=== PATIENT | female | born 1955 | race Caucasian/White ===

== ENCOUNTER → 2018-12-25 | Outpatient (CLI) | payer SELFPAY ==
[2018-12-25 13:43] LABS: BASOPHILS ABSOLUTE AUTO 0.06 K/mm3 (0.00-0.23); BASOPHILS PERCENT AUTO 1 % (0-2); EOSINOPHILS ABSOLUTE AUTO 1.21 K/mm3 (0.00-0.68); EOSINOPHILS PERCENT AUTO 17 % (0-6); Hematocrit 38.9 % (33.0-51.0); Hemoglobin 13.2 g/dL (11.5-16.0); IMMATURE GRAN ABSOLUTE AUTO 0.01 K/mm3 (0.00-0.10); IMMATURE GRAN PERCENT AUTO 0 % (0-1); LYMPHOCYTES ABSOLUTE AUTO 1.55 K/mm3 (0.84-5.20); LYMPHOCYTES PERCENT AUTO 22 % (21-46); MONOCYTES PERCENT AUTO 6 % (4-13); Mean Corpuscular HGB 29.7 pg (26.0-34.0); Mean Corpuscular HGB Conc 33.9 g/dL (31.5-36.5); Mean Corpuscular Volume 88 fL (80-100); Mean Platelet Volume 10.6 fL (9.1-12.4); NEUTROPHILS ABSOLUTE AUTO 3.75 K/mm3 (1.96-9.15); NEUTROPHILS PERCENT AUTO 54 % (41-73); Platelet Count 244 K/mm3 (150-400); RDW Coefficient Variation 13.6 % (11.7-14.2); RDW Standard Deviation 43.7 fL (35.1-46.3); Red Blood Cell Count 4.44 M/mm3 (3.80-5.20); White Blood Cell Count 6.98 K/mm3 (4.00-11.30)
[2018-12-25 14:01] LABS: Alanine Aminotransfer (ALT/SGP 22 U/L (12-78); Albumin, Blood 4.3 g/dL (3.4-5.0); Albumin/Globulin Ratio 1.1 (0.8-1.8); Alk Phos 64 U/L (40-126); Anion Gap 11 mmol/L (6-16); Aspartate Aminotrans (AST/SGOT 22 U/L (12-37); Bilirubin, Total 0.6 mg/dL (0.1-1.0); Blood Urea Nitrogen 13 mg/dL (8-24); Bun/Creatinine Ratio 17.1 (12.0-20.0); CO2, Blood 25 mmol/L (21-32); Chloride, Blood 103 mmol/L (98-108); Creatinine, Blood 0.76 mg/dL (0.40-1.00); Globulin, Blood 3.8 g/dL (2.2-4.0); Glomerular Filtration Rate >60 (60-); Glucose, Blood 102 mg/dL (70-99); Potassium, Blood 3.9 mmol/L (3.5-5.5); Sodium, Blood 139 mmol/L (136-145); Thyroid Stimulating Hormone 3.458 uIU/mL (0.360-4.800); Total Protein, Blood 8.1 g/dL (6.4-8.2)
[2018-12-25 14:02] LABS: Troponin I <0.017 ng/mL (0.000-0.040)
== END | disposition home or self-care (01) ==
LOC: LAB EV 13:38 → LAB SHORT 13:38
PROVIDERS: Physician Assistant Surgical
DX: R06.00 Dyspnea, unspecified (principal); R53.83 Other fatigue
CPT/HCPCS: 80053; 84443; 84484; 85025; 85379

== ENCOUNTER 2019-08-31 20:42 | Emergency (ER) | payer SELFPAY ==
[~2019-08-31] VITALS: Ht 172.7 cm; Wt 113.4 kg
[2019-08-31] MEDS ORDERED: Roxicodone5 MG PO (23:00)
== END 2019-08-31 23:55 | disposition home or self-care (01) ==
LOC: ER 20:42
DX: S52.531A Colles' fracture of right radius, initial encounter for closed fracture (principal); W01.10XA Fall on same level from slipping, tripping and stumbling with subsequent striking against unspecified object, initial encounter
CPT/HCPCS: 25605; 73090; 76000; 96374-59; 99283-25; A9270; J2270; J2704; J7030

== ENCOUNTER 2019-09-08 14:09 | Day surgery (SDC) | payer MEDICARE ==
[~2019-09-08 14:09] MED LIST: Roxicodone5 MG PO
--- NOTE | 2019-09-08 14:52 | NUR ---
Ambulatory in Day Surgery History, Chart, Medications and Allergies reviewed before start of procedure.Lungs clear T/O to Auscultation. Patient confirms NPO status and agrees with scheduled surgery.
--- NOTE | 2019-09-08 18:43 | NUR ---
Patient up to Ambulate WITH STANDBY ASSIST TO XFER TO Discharge instructions reviewed with patient. Patient verbalizes understanding. Copy given to patient to take home. Patient States Post-Procedure ride home has been arranged. Discharged via wheelchair to private car for ride home.
== END 2019-09-08 23:15 | disposition home or self-care (01) ==
LOC: ORD 14:09 → ORSCMMR 14:09 → ORD 23:15
PROVIDERS: Orthopaedic Surgery
PROC: 0PSH04Z Reposition Right Radius with Internal Fixation Device, Open Approach (ICD-10-PCS; principal; 2019-09-08 11:15)
DX: S52.571A Other intraarticular fracture of lower end of right radius, initial encounter for closed fracture (principal); E03.9 Hypothyroidism, unspecified; J45.909 Unspecified asthma, uncomplicated; Z79.899 Other long term (current) drug therapy; E66.01 Morbid (severe) obesity due to excess calories; Z68.38 Body mass index [BMI] 38.0-38.9, adult
CPT/HCPCS: C1713; J0360; J0690; J1100; J2250; J2405; J2704; J3010; J7120

== ENCOUNTER → 2019-12-22 | Outpatient (CLI) | payer OTHER ==
[2019-12-22 13:46] LABS: BASOPHILS ABSOLUTE AUTO 0.08 K/mm3 (0.00-0.23); BASOPHILS PERCENT AUTO 1 % (0-2); EOSINOPHILS ABSOLUTE AUTO 1.12 K/mm3 (0.00-0.68); EOSINOPHILS PERCENT AUTO 13 % (0-6); Hematocrit 40.3 % (33.0-51.0); Hemoglobin 13.7 g/dL (11.5-16.0); IMMATURE GRAN ABSOLUTE AUTO 0.01 K/mm3 (0.00-0.10); IMMATURE GRAN PERCENT AUTO 0 % (0-1); LYMPHOCYTES ABSOLUTE AUTO 2.12 K/mm3 (0.84-5.20); LYMPHOCYTES PERCENT AUTO 25 % (21-46); MONOCYTES ABSOLUTE AUTO 0.63 K/mm3 (0.16-1.47); MONOCYTES PERCENT AUTO 8 % (4-13); Mean Corpuscular HGB 29.3 pg (26.0-34.0); Mean Corpuscular Volume 86 fL (80-100); Mean Platelet Volume 10.9 fL (9.1-12.4); NEUTROPHILS ABSOLUTE AUTO 4.49 K/mm3 (1.96-9.15); NEUTROPHILS PERCENT AUTO 53 % (41-73); Platelet Count 195 K/mm3 (150-400); RDW Coefficient Variation 14.6 % (11.7-14.2); RDW Standard Deviation 46.2 fL (35.1-46.3); Red Blood Cell Count 4.68 M/mm3 (3.80-5.20); White Blood Cell Count 8.45 K/mm3 (4.00-11.30)
[2019-12-22 13:56] LABS: Alanine Aminotransfer (ALT/SGP 26 U/L (12-78); Albumin, Blood 3.7 g/dL (3.4-5.0); Albumin/Globulin Ratio 0.9 (0.8-1.8); Alk Phos 70 U/L (40-126); Anion Gap 14 mmol/L (6-16); Aspartate Aminotrans (AST/SGOT 24 U/L (12-37); Bilirubin, Total 0.4 mg/dL (0.1-1.0); Blood Urea Nitrogen 19 mg/dL (8-24); Bun/Creatinine Ratio 22.6 (12.0-20.0); CO2, Blood 23 mmol/L (21-32); Calcium, Blood 8.6 mg/dL (8.5-10.1); Chloride, Blood 105 mmol/L (98-108); Creatinine, Blood 0.84 mg/dL (0.40-1.00); Globulin, Blood 3.9 g/dL (2.2-4.0); Glomerular Filtration Rate >60 (60-); Glucose, Blood 103 mg/dL (70-99); Sodium, Blood 142 mmol/L (136-145); Total Protein, Blood 7.6 g/dL (6.4-8.2)
== END | disposition home or self-care (01) ==
LOC: LAB EV 13:41 → LAB SHORT 13:41
PROVIDERS: Physician Assistant
DX: R07.9 Chest pain, unspecified (principal)
CPT/HCPCS: 80053; 85025; 85379

== ENCOUNTER 2020-05-21 11:47 | Day surgery (SDC) | payer OTHER ==
[~2020-05-21] VITALS: Ht 174 cm; Wt 115.2 kg
[~2020-05-21 11:47] MED LIST changes: +FLUT1DIS5 INH; +LEVSOD25 PO; +PROAIR DIGIHAL90 MCG INH; +[UNRECOGNIZED DRUG - OTHER]
--- NOTE | 2020-05-21 12:47 | NUR ---
History, Chart, Medications and Allergies reviewed before start of procedure.Patient confirms NPO status and agrees with scheduled surgery. Patient states colon prep results clear.Lungs clear T/O to Auscultation.
--- NOTE | 2020-05-21 13:31 | NUR ---
05/21/20 1331 MARQUISE BRADSHAW History, Chart, Medications and Allergies reviewed before start of procedure. O2 VIA N/C INTACT THROUGHOUT SEDATION/PROCEDURE. 3-LEAD EKG REVIEWED WITH PHYSICIAN PRIOR TO START OF PROCEDURE. MONITOR INTACT WITH CONTINUOUS PULSE OXIMETRY AND INTERMITTENT BP. PATIENT DETERMINED TO BE ASA APPROPRIATE FOR PROPOFOL SEDATION PRIOR TO START OF PROCEDURE BY DR. POTTER.
--- NOTE | 2020-05-21 15:46 | NUR ---
DISCHARGE SUMMARY PT A&OX4, VSS, AURELIO PO, LEFT UNIT VIA WC WITH DC PACKET, TO GO HOME WITH FARM FIELD MANAGER SISTER KEN. DC INSTRUCTIONS PROVIDED. PT REP UNDERSTANDING THOSE INSTRUCTIONS INCLUDING OK TO RESUME REG ACTIVITY TOMORROW, EXTRA H20 TODAY, NO DRIVING/MACHINERY TODAY, DR OFFICE WILL CALL WITH FU INFORMATION. IV DC'D. Discharge instructions reviewed with patient. Patient verbalizes understanding. Copy given to patient to take home. Discharged via wheelchair to private car for ride home.
== END 2020-05-21 22:54 | disposition home or self-care (01) ==
LOC: ORSCMMR 11:47 → ORD 13:15 → ORSCMMR 13:15
PROVIDERS: Internal Medicine Gastroenterology
PROC: 0D5L8ZZ Destruction of Transverse Colon, Via Natural or Artificial Opening Endoscopic (ICD-10-PCS; principal; 2020-05-21 13:15)
PROC: 0D5M8ZZ Destruction of Descending Colon, Via Natural or Artificial Opening Endoscopic (ICD-10-PCS; principal; 2020-05-21 13:15)
PROC: 0DBH8ZX Excision of Cecum, Via Natural or Artificial Opening Endoscopic, Diagnostic (ICD-10-PCS; principal; 2020-05-21 13:15)
PROC: 0DJ08ZZ Inspection of Upper Intestinal Tract, Via Natural or Artificial Opening Endoscopic (ICD-10-PCS; principal; 2020-05-21 13:15)
PROC: 0D5N8ZZ Destruction of Sigmoid Colon, Via Natural or Artificial Opening Endoscopic (ICD-10-PCS; principal; 2020-05-21 13:15)
PROC: 0D5P8ZZ Destruction of Rectum, Via Natural or Artificial Opening Endoscopic (ICD-10-PCS; principal; 2020-05-21 13:15)
DX: R19.5 Other fecal abnormalities (principal); D12.3 Benign neoplasm of transverse colon; D12.4 Benign neoplasm of descending colon; K63.5 Polyp of colon; K62.1 Rectal polyp; K57.30 Diverticulosis of large intestine without perforation or abscess without bleeding; Q27.33 Arteriovenous malformation of digestive system vessel; K64.8 Other hemorrhoids; E03.9 Hypothyroidism, unspecified; J45.909 Unspecified asthma, uncomplicated; Z87.891 Personal history of nicotine dependence; E66.01 Morbid (severe) obesity due to excess calories; Z68.39 Body mass index [BMI] 39.0-39.9, adult; Z79.899 Other long term (current) drug therapy
CPT/HCPCS: 88305; J2704; J7120

== ENCOUNTER 2020-12-15 15:29 | Inpatient (IN) | payer OTHER, MEDICARE ==
[~2020-12-15] VITALS: Ht 172.7 cm; Wt 112.3 kg
[2020-12-15 16:26] LABS: BASOPHILS ABSOLUTE AUTO 0.03 K/mm3 (0.00-0.23); BASOPHILS PERCENT AUTO 0 % (0-2); EOSINOPHILS ABSOLUTE AUTO 0.33 K/mm3 (0.00-0.68); EOSINOPHILS PERCENT AUTO 4 % (0-6); Hematocrit 37.6 % (33.0-51.0); Hemoglobin 12.7 g/dL (11.5-16.0); IMMATURE GRAN ABSOLUTE AUTO 0.07 K/mm3 (0.00-0.10); IMMATURE GRAN PERCENT AUTO 1 % (0-1); LYMPHOCYTES ABSOLUTE AUTO 1.14 K/mm3 (0.84-5.20); LYMPHOCYTES PERCENT AUTO 15 % (21-46); MONOCYTES ABSOLUTE AUTO 0.56 K/mm3 (0.16-1.47); MONOCYTES PERCENT AUTO 7 % (4-13); Mean Corpuscular HGB 28.6 pg (26.0-34.0); Mean Corpuscular HGB Conc 33.8 g/dL (31.5-36.5); Mean Corpuscular Volume 85 fL (80-100); Mean Platelet Volume 9.5 fL (9.1-12.4); NEUTROPHILS PERCENT AUTO 73 % (41-73); Platelet Count 364 K/mm3 (150-400); RDW Standard Deviation 43.2 fL (35.1-46.3); Red Blood Cell Count 4.44 M/mm3 (3.80-5.20); White Blood Cell Count 7.73 K/mm3 (4.00-11.30)
[2020-12-15 17:07] LABS: Alanine Aminotransfer (ALT/SGP 44 U/L (12-78); Albumin, Blood 2.5 g/dL (3.4-5.0); Albumin/Globulin Ratio 0.5 (0.8-1.8); Alk Phos 112 U/L (50-136); Anion Gap 6 mmol/L (6-16); Aspartate Aminotrans (AST/SGOT 55 U/L (12-37); Bilirubin, Total 0.7 mg/dL (0.1-1.0); Blood Urea Nitrogen 8 mg/dL (8-24); Bun/Creatinine Ratio 14.1 (12.0-20.0); CO2, Blood 31 mmol/L (21-32); Calcium, Blood 9.1 mg/dL (8.5-10.1); Chloride, Blood 97 mmol/L (98-108); Creatinine, Blood 0.57 mg/dL (0.40-1.00); Globulin, Blood 5.4 g/dL (2.2-4.0); Glomerular Filtration Rate >60 (60-); Glucose, Blood 105 mg/dL (70-99); Potassium, Blood 2.9 mmol/L (3.5-5.5); Sodium, Blood 134 mmol/L (136-145); Total Protein, Blood 7.9 g/dL (6.4-8.2); Troponin I <0.015 ng/mL (0.000-0.040)
[2020-12-15 17:20] LABS: Source, Urine Clean Catch
[2020-12-15 17:24] LABS: Appearance, Urine Clear (Clear); Bilirubin, Urine Neg (Neg); Blood, Urine 2+ (Neg); Color, Urine Yellow (P-Yellow); Glucose Qualitative, Urine Neg (Neg); Ketones, Urine Neg (Neg); Leukocyte Esterase, Urine Neg (Neg); Nitrite, Urine Neg (Neg); Protein, Urine Neg (Neg); Specific Gravity, Urine 1.015 (1.003-1.022); Urobilinogen, Urine NORM (Normal)
[2020-12-15 17:42] LABS: Bacteria Few /hpf; Squamous Epithelial Cells Few /hpf (Few)
[2020-12-15 18:14] LABS: PCO2 Arterial 36.4 mmHg (35-45); PO2 Arterial 106 mmHg (80-100); pH Blood Arterial 7.53 (7.35-7.45)
--- NOTE | 2020-12-15 22:30 | NUR ---
PT ARRIVES ER ADMIT. PT IS A&O, CALM & COOPERATIVE. ABLE TO GIVE A FULL HEALTH Hx. STS SHE TESTED +COVID ON 12/02 & HAS BEEN @ HOME RESTING. SHE HAS HAD INC DIFFICULTY W/ SOB, STS SHE IS NOW UNABLE TO WALK FROM HER BEDROOM TO RESTROOM & HAS BEEN USING A TRASHCAN IN HER ROOM A TOILET. TODAY HER SOB WORSENED & HER HOME BIOX READ 70%, PROMPTING HER TO CALL EMS. UPON ARRIVAL TO ED SHE WAS PLACED ON BiPAP AFTER NON-REBREATHER @15L WAS UNSUCCESSFUL IN BRINGING HER SATS UP FROM THE 80s. 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
--- NOTE | 2020-12-15 23:24 | NUR ---
UPDATE: RT @ BEDSIDE TO CHANGE PT FROM BiPAP TO AIRVO. PT TOLERATING WELL W/ SATS MAINTAINING >95%. PT ABLE TO SPEAK IN FULL SENTENCES W/ VERY LITTLE DYSPNEA. AIRVO @ 40L & 45%. PT CONTINUES TO BE CALM, COOPERATIVE & IN GOOD SPIRITS.
--- NOTE | 2020-12-16 01:17 | NUR ---
UPDATE: RT @ BEDSIDE. PT CHANGED FROM AIRVO TO NC @ 3L/min. SATS >94%, EVEN WHILE PT IS SLEEPING. VS STABLE. WILL CONTINUE TO MONITOR & REPORT APPROPRIATE.
[2020-12-16 03:52] LABS: BASOPHILS ABSOLUTE AUTO 0.01 K/mm3 (0.00-0.23); BASOPHILS PERCENT AUTO 0 % (0-2); EOSINOPHILS ABSOLUTE AUTO 0.01 K/mm3 (0.00-0.68); EOSINOPHILS PERCENT AUTO 0 % (0-6); Hematocrit 33.7 % (33.0-51.0); Hemoglobin 11.3 g/dL (11.5-16.0); IMMATURE GRAN ABSOLUTE AUTO 0.05 K/mm3 (0.00-0.10); IMMATURE GRAN PERCENT AUTO 1 % (0-1); LYMPHOCYTES ABSOLUTE AUTO 0.73 K/mm3 (0.84-5.20); LYMPHOCYTES PERCENT AUTO 10 % (21-46); MONOCYTES ABSOLUTE AUTO 0.22 K/mm3 (0.16-1.47); MONOCYTES PERCENT AUTO 3 % (4-13); Mean Corpuscular HGB 28.6 pg (26.0-34.0); Mean Corpuscular HGB Conc 33.5 g/dL (31.5-36.5); Mean Corpuscular Volume 85 fL (80-100); Mean Platelet Volume 9.6 fL (9.1-12.4); NEUTROPHILS ABSOLUTE AUTO 6.58 K/mm3 (1.96-9.15); NEUTROPHILS PERCENT AUTO 87 % (41-73); Platelet Count 331 K/mm3 (150-400); RDW Coefficient Variation 14.3 % (11.7-14.2); RDW Standard Deviation 44.2 fL (35.1-46.3); Red Blood Cell Count 3.95 M/mm3 (3.80-5.20)
[2020-12-16 04:07] LABS: Anion Gap 5 mmol/L (6-16); Blood Urea Nitrogen 10 mg/dL (8-24); Bun/Creatinine Ratio 18.7 (12.0-20.0); CO2, Blood 28 mmol/L (21-32); Calcium, Blood 8.3 mg/dL (8.5-10.1); Chloride, Blood 105 mmol/L (98-108); Creatinine, Blood 0.54 mg/dL (0.40-1.00); Glomerular Filtration Rate >60 (60-); Glucose, Blood 160 mg/dL (70-99); Potassium, Blood 4.7 mmol/L (3.5-5.5); Sodium, Blood 138 mmol/L (136-145)
--- NOTE | 2020-12-16 05:06 | NUR ---
UPDATE: PT STAND & PIVOT TRANSFER TO BS. TRANSFERRED WELL INITIALLY, HOWEVER AFTER SITTING ON THE BSC FOR A FEW MINS, PT BECAME DYSPNEIC & INCREASILY ANXIOUS. SATS DEC FROM 93% TO MID 70s. PT HAD DIFFICULTY TAKING IN SLOW BREATHS IN THROUGH THE NOSE & OUT THE MOUTH D/T ANXIETY. PT MEDICATED W/ PRN ATIVAN. RT CALLED & PT PLACED BACK ON AIRVO @ 40l, 40%FiO2. AFTER APPROX 10min, PT WAS ABLE TO REST, APPEARING MUCH MORE COMFORTABLE. SATS NOW >94%. CURTAINS LEFT OPEN & CALL LIGHT W/IN REACH.
--- NOTE | 2020-12-16 05:53 | NUR ---
SHIFT SUMMARY: PT SLEPT WELL FOR MOST OF THE NIGHT, AWAKING ONLY FOR MED PASS & TO USE BSC. PT WAS ON 3L/min NC FOR MOST OF THE NIGHT W/ O2 NEEDS INCREASING AFTER TRASNFERRING FROM BED TO BSC. SEE PREVIOUS NOTATION. PT HAS BEEN OTHERWISE STABLE. PT ENCOURAGED TO PRONE, HOWEVER PT STS SHE IS TOO ANXIOUS RIGHT NOW BUT SHE DOES WANT TO ATTEMPT TO PRONE IN THE AM. PLAN FOR POSSIBLE STATUS CHANGE TODAY IF PT REMAINS STABLE ON NC.
--- NOTE | 2020-12-16 07:35 | NUR ---
BEGINNING OF SHIFT Assumed care of pt at 0700. Bedside report received from Kisha QIU. Pt A&O x 4. Answers questions. Follows commands. Verbalizes needs. Pleasant and cooperative with care. SpO2 90% or greater with AirVO 40 LPM and 50% FiO2. Lungs diminished t/o. Pt has productive loose, moist cough with a small amount of thick white/clear sputum. SR per monitor. BP stable. Pt repositions independently in bed. Bed in lowest position. Call light in reach. Pt denies need at this time.
--- NOTE | 2020-12-16 08:09 | NUR ---
Dr Velasco in to see patient. Provider states pt may be PCU status. States to stop IV fluids. Inquired if provider would like CT PE study as this was cancelled yesterday due to pt not being able to lay flat. Provider states no, and to continue treating pt with xarelto.
--- NOTE | 2020-12-16 09:00 | NUR ---
Discussed code status with pt, she reinforces that she does not want intubation. States her father was on a ventilator and was not able to be weaned off and she and her sister discussed that she does not want mechanical ventilation. Pt also discusses that she would like her sister and/or daughter to be her decision maker. She details that her struggles with advanced decision making, "he was on life support for a month" and "he hasn't been the same since. He doesn't think right. He doesn't realize he has a few things missing, like empathy". She states she would not want him to be faced with making her health-care decisions.
--- NOTE | 2020-12-16 10:15 | NUR ---
Spoke with Bedside RN Marcia and discussed case. Pt is requiring significant oxygen support and is requesting to complete an advanced directive. Pt is wanting to appoint her sister as MPOA and not her spouse. Pt is resting in bed upon arrival and is A&O. Engaged in therapeutic discussion regarding advanced directive and code status. Pt confirms willingness to complete an advanced directive. Educated on life sustaining measures and each section to be completed. Assisted Pt with completing AD per her request. Pt places her initials next to her wishes. Discussed code status and educated on life sustaining measures including risk factors and implications. Communication from this RN is difficult due to wearing N99. Unsure if Pt is able to clearly hear education provided. Pt does confirm her wishes are to remain DNI. During visit this RN assisted Pt to BSC and back per her request. Pt desaturates to low to mid 70's while on BSC. Pt takes several minutes to recover before transfering back to bed. Spoke with Employment Law Specialist Joyce and discussed case. Joyce will notarize Pt's AD. Palliative Care will remain available.
--- NOTE | 2020-12-16 10:33 | NUR ---
CHANGE TO ICU STATUS Lasix given per orders from Dr Velasco. Pt tolerated commode use very poorly. First time up to commode, pt required FiO2 titrated from 50% to 65% and took about 7 minutes to recover. On second commode use, pt required FiO2 titrated from 65% to 90% and took about 5 minutes to recover. Jones catheter discussed with pt. Pt agreeable to this. Temp jones inserted. Updated Dr Velasco. Requested change to ICU status due to increasing FiO2 requirements and poor activity tolerance. New orders received.
[2020-12-16 10:54] LABS: Source, Urine Catheter
--- NOTE | 2020-12-16 11:05 | NUR ---
Per Laurie QIU, pt wants DNR/DNI. Call placed to Dr Velasco to receive new order. New order given. POLST filled out, provider states he will come by to sign it.
[2020-12-16 11:13] LABS: Appearance, Urine Clear (Clear); Bilirubin, Urine Neg (Neg); Blood, Urine 1+ (Neg); Color, Urine Yellow (P-Yellow); Glucose Qualitative, Urine Neg (Neg); Ketones, Urine Neg (Neg); Leukocyte Esterase, Urine Neg (Neg); Nitrite, Urine Neg (Neg); Protein, Urine Neg (Neg); Specific Gravity, Urine 1.005 (1.003-1.022); Urobilinogen, Urine NORM (Normal)
[2020-12-16 12:00] LABS: Bacteria Rare /hpf; Mucus Light (0-Heavy); Squamous Epithelial Cells Rare /hpf (Few)
--- NOTE | 2020-12-16 17:19 | NUR ---
SUMMARY At this time, pt remains A&O x 4. Answers questions. Follows commands. Verbalizes needs. Pleasant and cooperative with care. Pt does not tolerate out of bed activity well due to dyspnea and hypoxia with exertion. Pt is steady on feet and receptive to verbal cues with mobilizing. Saxena catheter placed, draining clear yellow urine. Pt had BM today, large and soft. Pt states this is the first time she has had a bowel movement in two weeks. Pt's lungs are dim t/o with intermittent fine crackles to bases. Currently on AIRVO with 55 LPM flow and 45% FiO2. SpO2 90% or greater. Bed in lowest position. Call light in reach. Pt denies need at this time.
--- NOTE | 2020-12-16 18:21 | NUR ---
Spiritual care note: KENRICK was tearful as she told me about her marriage and struggles. She appeared releived to be able to talk to someone. She responded well to spiritual outreach counselor and prayer. Advanced Directive notarized. POLST completed and signed by physician. Copies made of documents and several given to pt. I hand-carried AD and POLST to medical records. She does not want her involved in any medical decisions on her behalf. She has designated her sister and dtr as MPOA. I will remain available.
--- NOTE | 2020-12-16 20:00 | NUR ---
LATE ENTRY: ASSUMED CARE OF PT AT 1915. REPORT RECEIVED AT BEDSIDE. PT PRESENTS ON AIRVO WITH 55 L/M FIO2 47 PERCENT. PT MAINTAINS 90-93 PERCENT SATURATIONS. PT ALERT AND ORIENTED. PLEASANT AND COOPERATIVE WITH CARE AND ASSESSMENT. DISCUSSED PLAN TO PRONE THIS NIGHT. PT VERBALIZES UNDERSTANDING. WILL REVIEW CHART AND PLAN OF CARE FOR THIS PT.
--- NOTE | 2020-12-17 | NUR ---
PT TOLERATES PRONE POSITION TO THE RIGHT FOR APPROX 3 HOURS. HAD NEED TO INCREASED FIO2 TO 55 PERCENT WITH THE EXERTION DURING TURN. WILL TITRATE IF ABLE. PT BACK TO SUPINE. OXYGEN SATURATATIONS REMAIN > 90 PERCENT.
--- NOTE | 2020-12-17 06:30 | NUR ---
PT HAS PRONE HERSELF BACK TO LEFT SIDE ON HER OWN. HAS BEEN ABLE TO REST. FIO2 HAS BEEN DECREASED BACK TO 45 PERCENT WITH 55 L/M FLOW. DOES HAVE EXERTIONAL DYSPNEA. WILL CONTINUE TO MONITOR PT, AND WILL REPORT OFF TO ONCOMING RN.
[2020-12-17 08:53] LABS: Anion Gap 6 mmol/L (6-16); Blood Urea Nitrogen 15 mg/dL (8-24); Bun/Creatinine Ratio 22.7 (12.0-20.0); CO2, Blood 29 mmol/L (21-32); Calcium, Blood 8.5 mg/dL (8.5-10.1); Chloride, Blood 105 mmol/L (98-108); Creatinine, Blood 0.66 mg/dL (0.40-1.00); Glomerular Filtration Rate >60 (60-); Glucose, Blood 104 mg/dL (70-99); Potassium, Blood 3.6 mmol/L (3.5-5.5); Sodium, Blood 140 mmol/L (136-145)
--- NOTE | 2020-12-17 09:26 | NUR ---
Assumed care of pt at 0700. Bedside report received from Baljit QIU. Pt A&O x 4. Answers questions. Follows commands. Verbalizes needs. Pleasant and cooperative with care. Lungs dim t/o. Pt has loose, moist, productive cough with small amounts of clear/white sputum. IS and flutter valve at bedside. SpO2 90% or greater with 55 LPM and 45% FiO2. Pt assisted to reposition in bed and cords and lines managed as they were tangled from previous proning. During repositioning, SpO2 dropped to low 80s. After 5 minutes of inactivity, SpO2 had not recovered, therefore FiO2 increased to 55%. This allowed patient to recover promptly. Dr Velasco in to see patient this AM. Provider states to hold lasix until BMP results.
--- NOTE | 2020-12-17 14:22 | NUR ---
Pt out of bed once to use commode. Required maximum FiO2 for activity and recovery. Current settings 55 LPM and 60% FiO2.
--- NOTE | 2020-12-17 17:49 | NUR ---
SUMMARY No acute changes t/o shift. Pt is currently on AirVo with 55 LPM and 58% FiO2. SpO2 90% or greater. Pt working with flutter valve and incentive spirometer independently. SR per monitor. BP stable. Pt plans to prone after dinner time.
--- NOTE | 2020-12-17 20:00 | NUR ---
ASSUMED CARE OF PT AT 1915. REPORT RECEIVED. PT PRESENTS IN BED. ALERT AND ORIENTED. PLEASANT AND COOPERATIVE WITH CARE AND ASSESSMENT. DENIES COMPLAINTS OF PAIN OR N/V. PT ON AIRVO AND IS ABLE TO MAINTAIN SATURATION > 90 PERCENT. WILL REVIEW CHART AND PLAN OF CARE FOR THIS PT. OF NOTE: PT HAS PRONED HERSELF PRIOR TO THIS RN'S ASSESSMENT.
--- NOTE | 2020-12-17 23:00 | NUR ---
TEACHING DONE ON INCENTIVE SPIROMETER, AND FLUTTER VALVE. PT VERBALIZES UNDERSTANDING OF IMPORTANCE AND USAGE. PT HAS REMAINED PRONE. HAS TOLERATED WELL. OXYGEN SATURATIONS HAVE REMAINED > 90. WILL CONTINUE TO MONITOR.
[2020-12-18 03:40] LABS: Anion Gap 5 mmol/L (6-16); Blood Urea Nitrogen 21 mg/dL (8-24); Bun/Creatinine Ratio 28.6 (12.0-20.0); CO2, Blood 33 mmol/L (21-32); Calcium, Blood 8.6 mg/dL (8.5-10.1); Chloride, Blood 99 mmol/L (98-108); Creatinine, Blood 0.73 mg/dL (0.40-1.00); Glomerular Filtration Rate >60 (60-); Glucose, Blood 155 mg/dL (70-99); Potassium, Blood 3.4 mmol/L (3.5-5.5); Sodium, Blood 137 mmol/L (136-145)
--- NOTE | 2020-12-18 05:03 | NUR ---
PT HAS BEEN RETURNED TO SUPINE POSITION AT APPROX 0300 THIS AM. MODERATE ASSIST. WHILE IN ROOM, PT HAD REMOVED HER AIRVO PRONGS FROM NARES. DID DESATURATE TO 84-[address] PRONGS BACK TO NARES AND SHE RETURNS TO > 90 PERCENT SATRUATION. DOES VOICE COMPLAINT OF HER NARES FEELING DRIED SECONDARY TO FLOW. PROVIDED A WATER SOLUABLE LUBRICANT FOR HER TO USE IN NARES. SHE DOES SO, AND STATES A BIG IMPROVEMENT. WILL CONTINUE TO MONITOR PT, AND WILL REPORT OFF TO ONCOMING RN.
--- NOTE | 2020-12-18 07:15 | NUR ---
Assumed care of pt at 0700. Bedside report received from Baljit QIU. Pt A&O x 4. Answers questions. Follows commands. Verbalizes needs. Lungs dim t/o. Inspiratory wheeze to ABBE. SpO2 90% or greater with AirVO 55 LPM and 60% FiO2. SR per monitor. BP stable. Bed in lowest position. Call light in reach. Pt denies need at this time.
--- NOTE | 2020-12-18 08:00 | NUR ---
Pt repositioned self in bed, desaturated, and failed to recover with previous AirVo settings. FiO2 increased to 90%.
--- NOTE | 2020-12-18 09:15 | NUR ---
Pt stated she felt she needed to have a bowel movement. Pt placed on BiPAP to increase oxygenation, 12/6 and 100% FiO2. SpO2 94%. Pt assisted to sit on edge of bed. SpO2 dropped to 84% and did not recover. Pt remained sitting on edge of bed. Dr Velasco called by rechargerAnamika for counter clerk farm equipment parts consult. Dr Stack in to see pt shortly afterwards. BiPAP settings changed to IPAP 14, EPAP 10. SpO2 increased into 90s and pt was assisted back into bed. FiO2 able to be decreased to 90%.
--- NOTE | 2020-12-18 11:45 | NUR ---
Pt has completed routine CT PE study. Currently in bed, proned and wearing BiPAP. Settings 14/10, 75%, rate 12. Current RR 23, tidal volumes 600-700 mL. SpO2 97%.
--- NOTE | 2020-12-18 14:57 | NUR ---
CT results reviewed. Call placed to Dr Stack to discuss that impression stated pneumomediastinum. Orders given to take pt off BiPAP and placed back on AirVO. Bipap settings at the time were 14/10 and 65% FiO2. BiPAP may be used if pt goes into respiratory distress. AirVO settings 55 LPM and 71% FiO2. SpO2 90% or greater.
--- NOTE | 2020-12-18 19:09 | NUR ---
SUMMARY Pt has been prone positioned or deep side-laying for majority of shift. Pt tolerating this position well. No BM this shift. Pt did not mobilize out of bed this shift due to hypoxia. At this time, pt is on AirVo 55 LPM and 78% FiO2. SpO2 90% or greater. SR per monitor. Excellent urine output. Pt states she is feeling discouraged. Therapeutic communication provided. Report given to oncoming RNLaura.
--- NOTE | 2020-12-18 19:28 | NUR ---
CARE ASSUMED REPORT RECEIVED FROM GUDELIA RN. PT RESTING IN PRONE POSITION AND HIFLOW O2, NO CURRENT GTTS INFUSING.
--- NOTE | 2020-12-19 01:03 | NUR ---
REASSESSMENT PT WATCHING TV, VITALS STABLE, NO CHANGES. PT DID FEEL A LITTLE ANXIOUS, GIVEN A PRN MED DOSE PER MAR. CONTINUE CARE.
[2020-12-19 04:04] LABS: Anion Gap 5 mmol/L (6-16); Blood Urea Nitrogen 25 mg/dL (8-24); Bun/Creatinine Ratio 33.9 (12.0-20.0); CO2, Blood 36 mmol/L (21-32); Calcium, Blood 8.8 mg/dL (8.5-10.1); Chloride, Blood 96 mmol/L (98-108); Creatinine, Blood 0.74 mg/dL (0.40-1.00); Glomerular Filtration Rate >60 (60-); Glucose, Blood 110 mg/dL (70-99); Potassium, Blood 4.1 mmol/L (3.5-5.5); Sodium, Blood 137 mmol/L (136-145)
--- NOTE | 2020-12-19 04:05 | NUR ---
REASSESSED PT DESAT 87%, RT INCREASED O2 TO 60L, 98% HIFLOW N/C. PT REMAINS SOB WITH ANY ACTIVITY, INCLUDING SLIGHT REPOSITIONING. DECREASED BS T/O. PT REMAINS UNABLE TO PRODUCE A SPUTUM FOR COLLECTION AT THIS TIME. pT STATES SHE IS COMFORTABLE IN THE POSITION SHE IS IN AND DOES NOT WANT TO TURN AT THIS TIME. WILL CONTINUE TO ASSESS AND TREAT NEEDED.
--- NOTE | 2020-12-19 07:45 | NUR ---
ASSUMED CARE SPOKE TO PT ABOUT HER FEAR OF INTUBATION, ITS ALL BASED ON HER FATHER NEVER GETTING OFF HIS VENT AFTER 6 MONTHS. PTS DAD HAD MULTIPLE COMORBIDITIES THAT SHE DOES NOT HAVE, HE WAS ALSO OLDER. PT IS GOING TO TALK TO HER FAMILY AND LET US KNOW. A/O X4, VSS AND SITTING UP IN BED. PT HAS PRODUCTIVE COUGH, SO SUCTION GIVEN FOR PT TO GET RID OF MUCOUS INSTEAD OF SPITTING IN A TISSUE. PT STATES NO REAL APPETITE SINCE SHE CANT TASTE OR SMELL, BUT ENCOURAGE TO TRY TO EAT SOME AND FINISH THE ENSURE FOR PROTEIN. ROBITUSSIN WITH MUCINEX GIVEN TO HELP COUGH EVERYTHING UP AND OUT
--- NOTE | 2020-12-19 18:45 | NUR ---
SHIFT SUMMARY PATIENT UP TO CHAIR 2X TODAY. FIRST WAS WITH BREAKFAST AND PT DID WELL. NO DESATURATION. SECOND TIME WE GOT UP, SHE DESATURATED INTO THE LOW 80'S AND TOOK A GOOD 10 MINUTES TO RECOVER. STILL UP IN THE CHAIR AND DOING WELL. HAD HER SISTER COME TO THE WINDOW SO THEY COULD SEE EACH OTHER, PT VERY APPRECIATIVE. O2 TO 60L AND FIO2 AT 85%. VSS DURING THE DAY AND SLEPT WELL AFTER BEING IN THE CHAIR FOR 5 HOURS.
--- NOTE | 2020-12-19 19:32 | NUR ---
CARE ASSUMED. REPORT RECEIVED. PT BACK TO BED. REMAINS ON hf NC. COMPLAINS OF ANXITY AND WOULD LIKE MEDICATION FOR THIS. WILL CONTINUE TO ASSESS AND TREAT.
--- NOTE | 2020-12-20 00:21 | NUR ---
REASSESSMENT NOTE PT REMAINS ON HF O2. IS BRENT, FOLLOWS. ATIVAN GIVENAT 1999, DECREASED BPS MAP 60. IF PT HAS ANYMORE ANXIETY, SUGGEST A DIFFERENT MED. CURRENTLY PT VITALS ARE STABLE, PT COMFORTABLE. CONTINUE TO ASSESS.
[2020-12-20 03:30] LABS: BASOPHILS ABSOLUTE AUTO 0.02 K/mm3 (0.00-0.23); BASOPHILS PERCENT AUTO 0 % (0-2); EOSINOPHILS ABSOLUTE AUTO 0.24 K/mm3 (0.00-0.68); EOSINOPHILS PERCENT AUTO 2 % (0-6); Hematocrit 41.8 % (33.0-51.0); Hemoglobin 14.1 g/dL (11.5-16.0); IMMATURE GRAN ABSOLUTE AUTO 0.09 K/mm3 (0.00-0.10); IMMATURE GRAN PERCENT AUTO 1 % (0-1); LYMPHOCYTES ABSOLUTE AUTO 1.78 K/mm3 (0.84-5.20); LYMPHOCYTES PERCENT AUTO 14 % (21-46); MONOCYTES ABSOLUTE AUTO 0.93 K/mm3 (0.16-1.47); MONOCYTES PERCENT AUTO 7 % (4-13); Mean Corpuscular HGB 28.4 pg (26.0-34.0); Mean Corpuscular HGB Conc 33.7 g/dL (31.5-36.5); Mean Corpuscular Volume 84 fL (80-100); Mean Platelet Volume 9.7 fL (9.1-12.4); NEUTROPHILS ABSOLUTE AUTO 9.61 K/mm3 (1.96-9.15); NEUTROPHILS PERCENT AUTO 76 % (41-73); Platelet Count 508 K/mm3 (150-400); RDW Standard Deviation 43.1 fL (35.1-46.3); Red Blood Cell Count 4.96 M/mm3 (3.80-5.20); White Blood Cell Count 12.67 K/mm3 (4.00-11.30)
[2020-12-20 03:48] LABS: Anion Gap 6 mmol/L (6-16); Blood Urea Nitrogen 31 mg/dL (8-24); Bun/Creatinine Ratio 41.6 (12.0-20.0); CO2, Blood 35 mmol/L (21-32); Chloride, Blood 94 mmol/L (98-108); Creatinine, Blood 0.75 mg/dL (0.40-1.00); Glomerular Filtration Rate >60 (60-); Glucose, Blood 125 mg/dL (70-99); Phosphorus, Blood 3.9 mg/dL (2.5-4.9); Potassium, Blood 3.8 mmol/L (3.5-5.5); Sodium, Blood 135 mmol/L (136-145)
--- NOTE | 2020-12-20 04:27 | NUR ---
reassessment NO CHANGES, PT REMAINS ON HF.
--- NOTE | 2020-12-20 04:52 | NUR ---
PT C/O ITCHING, TREATED PER DEC. REPOSITIONED IN BED WITH PILLOW SUPPORT.
--- NOTE | 2020-12-20 06:04 | NUR ---
END OF SHIFT NOTE PT REMAINS ON HF NC 60L FLOW 90%. PT ALEART, AND CAN VERBALIZE NEEDS. NO CHANGES OVERNIGHT. PT CAN ASSIST IN REPOSITIONING. VITALS STABLE. WILL CONTINUE TO ASSESS TILL REPORT OFF TO ONCOMING RN.
--- NOTE | 2020-12-20 07:17 | NUR ---
ASSUMED CARE PT RESTING IN BED WITH CALL LIGHT IN REACH. VSS OVERNIGHT, ATIVAN DROPS PRESSURE. SEE IF MD WILL CHANGE TO XANEX ORAL, INSTEAD OF ATIVAN IV FOR ANXIETY. NO EVENTS OVERNIGHT. WBC UP THIS AM, WILL CONTINUE TO MONITOR
--- NOTE | 2020-12-20 10:15 | NUR ---
PT WAS IN PRONE POSITION BUT WAS NOT VERY COMFORTABLE, REARRANGED PT AND PILLOWS TO GET HER COMFORTABLE. GOT PATIENT UP TO BEDSIDE COMODE, PT HAD SMALL BM AFTER STRAINING AND SOB WITH O2 SATS DROPPING. HAD HER STAND PIVOT AND TRANSFER TO THE RECLINER. O2 SAT STILL IN THE LOW 80'S. ENCOURAGED SLOW DEEP BREATHING THRU HER NOSE, EXHALE THRU HER MOUTH. O2 SATE CONTINUE IN THE 80'S. WORKED WITH PATIENT AND THE INCENTIVE SPIROMETED WITH NOT MUCH SUCCESS, PT STILL NOT OXYGENATING WELL. O2 SATS CONTINUE TO STAY IN THE LOW 80'S. RESPIRATORY CALLED. FIO2 TURNED UP TO 90%, 60L. DEEP BREATHING AND COUGH ENCOURAGED, BUT STILL IN THE 80'S. BIPAP PLACED AND O2 SATURATION SLOWLY STARTS TO INCREASE TO ACCEPTABLE LEVELS. WILL KEEP PT ON BIPA[ TO SCRAP WHEELER HER A REST, PT NODS IN UNDERSTANDING. WILL CONTINUE TO MONITOR O2 SATS CLOSELY
--- NOTE | 2020-12-20 13:15 | NUR ---
FIO2 REDUCED TO 85%. SAT'S IN THE HIGH 90'S
--- NOTE | 2020-12-20 18:21 | NUR ---
SHIFT SUMMARY PT WAS PRONED THIS MORNING, BUT WAS VERY UNCOMFORTABLE. TRIED TO REPOSITION WITH NO RESULTS. PT DESAT AND ASSISTED TO COMMODE. PT HAD TO STRAIN FOR BM AND THEN GOT TO THE CHAIR. VERY SHORT OF BREATH AND DESAT IN THE LOW 80'S. PT WAS WORN OUT AND STRUGGLING SO BIPAP PLACED FOR RELIEF AND REST. PT RECOVERED AND WE LEFT BIPAP ON FOR A FEW HOURS, THEN SWITCHED HER BACK TO AIRVO @ 90% 60L. SATURATING WELL WITH THAT, TURNED DOWN TO 85%. PATIENT WAS BATHED AND ASSISTED BACK TO BED. REPIRATORY REDUCED TO 80% AND PT SATURATION IN THE 90'S. LUNG SOUNDS STILL DIMINISHED AND PT BECOMES SOB WITH ANY EXERTION. BP'S STABLE FOR SHIFT, WEINSTEIN STILL IN PLACE WITH GOOD OUTPUT. REMDESIVIR RESTARTED ALONG WITH 1 DOSE OF ACTEMRA IV.
--- NOTE | 2020-12-20 19:15 | NUR ---
CARE ASSUMED REPORT RECEIVED FROM SOSA HAM RN. PT BRENT, WATCHING TV, ON HIGHFLOW @ 60L, 80%, NO GTTS INFUSING AT THIS TIME. WEINSTEIN IN PLACE WITH YELLOW UO. VITALS STABLE. CONTINUE TO ASSESS.
--- NOTE | 2020-12-21 00:04 | NUR ---
REASSESSMENT PT RESTING ON HF, NO CHANGES IN SETTINGS. PT GIVEN 25MG BENADRYL FOR ITCHING AND HAS RESTED QUIETLY. NO OTHER CHANGES. CONTINUE TO ASSESS.
--- NOTE | 2020-12-21 02:52 | NUR ---
REASSESS 0230: PT REPOSITION, COUGH, DECREASED SATS 85%. WAITING APROX 15 MIN, SATS INCREASED TO 87% THEN DECREASED TO 85%. INCREASED HF TO 90%.0245 PT HAD 2END COUGHING EPISIDE AND SATS DECREASD 78%.RT NOTIFIED, PT DEEP BREATHING, SATS INCREASED TO 87%. RT ARRIVED IN ROOM, PT PLACED ON BIPAP 27/09 100%. SAT PROBE SITE CHANGED, SATS REMAIN DECREASED, 85%. REPOSITION PT TO RT SIDE ON BIPAP. PILLOW SUPPORT USED. SATS IMPROVING 91% ON BIPAP 16/ 100%.
--- NOTE | 2020-12-21 04:04 | NUR ---
REASSESSMENT PT ON BIPAP 29/09 100% RR IN THE 30'S. RT NOTIFIED. BS CLEAR, DECREASED, SATS 88-90%.
[2020-12-21 04:19] LABS: BASOPHILS ABSOLUTE AUTO 0.03 K/mm3 (0.00-0.23); BASOPHILS PERCENT AUTO 0 % (0-2); EOSINOPHILS ABSOLUTE AUTO 0.23 K/mm3 (0.00-0.68); EOSINOPHILS PERCENT AUTO 2 % (0-6); Hematocrit 41.4 % (33.0-51.0); Hemoglobin 14.3 g/dL (11.5-16.0); IMMATURE GRAN ABSOLUTE AUTO 0.07 K/mm3 (0.00-0.10); IMMATURE GRAN PERCENT AUTO 1 % (0-1); LYMPHOCYTES PERCENT AUTO 14 % (21-46); MONOCYTES ABSOLUTE AUTO 1.21 K/mm3 (0.16-1.47); MONOCYTES PERCENT AUTO 9 % (4-13); Mean Corpuscular HGB 28.6 pg (26.0-34.0); Mean Corpuscular HGB Conc 34.5 g/dL (31.5-36.5); Mean Corpuscular Volume 83 fL (80-100); Mean Platelet Volume 9.4 fL (9.1-12.4); NEUTROPHILS PERCENT AUTO 75 % (41-73); Platelet Count 525 K/mm3 (150-400); RDW Standard Deviation 41.5 fL (35.1-46.3); White Blood Cell Count 14.14 K/mm3 (4.00-11.30)
[2020-12-21 04:34] LABS: Anion Gap 8 mmol/L (6-16); Blood Urea Nitrogen 30 mg/dL (8-24); Bun/Creatinine Ratio 34.7 (12.0-20.0); CO2, Blood 33 mmol/L (21-32); Calcium, Blood 8.9 mg/dL (8.5-10.1); Chloride, Blood 92 mmol/L (98-108); Creatinine, Blood 0.87 mg/dL (0.40-1.00); Glomerular Filtration Rate >60 (60-); Glucose, Blood 115 mg/dL (70-99); Potassium, Blood 3.7 mmol/L (3.5-5.5); Sodium, Blood 133 mmol/L (136-145)
--- NOTE | 2020-12-21 06:22 | NUR ---
END OF SHIFT PT ON 90% 60 L HF SATS 90-95% AT REST. PT DESATS WITH ANY ACTIVITY OR COUGHING. PT CURRENTLY RT SIDE LYING WITH PILLOW SUPPORT (POSITION OF COMFORT PER PT).
--- NOTE | 2020-12-21 08:45 | NUR ---
ASSUMED CARE: REPORT RECEIVED FROM JLUIS Gama RN. ASSUMED CARE OF THIS PT AT APPROX 0700. ON ASSESSMENT, THE PT IS AWAKE, ALERT & ORIENTED TO ALL. SHE HAS C/O DYSPNEA W/ ANY PHYSICAL EXERTION OR PROLONGED CONVERSATION BUT DOES WELL W/ FOCUSED BREATHING DURING THESE TIMES. LS ARE DIM T/O, PT ON AIRVO W/ SETTINGS: 60 L/MIN & 85% FIO2. O2 SATS > 92% ON AVG W/ DESATS TO 88% NOTED DURING EXERTION. MONITOR SHOWS SR W/ HR 80s, BP STABLE. PT HAS NO GI COMPLAINTS, IS TOLERATING PO INTAKE WELL. TEMP WEINSTEIN PATENT/ DRAINING DARK YELLOW URINE. SKIN CONDITION OVERALL CDI. WILL CONTINUE TO MONITOR & UPDATE NEEDED.
--- NOTE | 2020-12-21 12:20 | NUR ---
DR HYATT: PROVIDER AT BEDSIDE TO ANGELO PT. SHE HAS DISCUSSED SELF-PRONING W/ THE PT & THE PT EXPRESSES CONCERNS OF CLAUSTROPHOBIA DURING SELF-PRONING. THEY HAVE DISCUSSED USING DISTRACTION DURING THIS TIME TO HELP W/ CLAUSTROPHOBIA & THE PT VERBALIZES THAT SHE WOULD LIKE TO BE ABLE TO WATCH THE TV WHILE IN PRONE POSITION. NO CHANGES AT THIS TIME.
--- NOTE | 2020-12-21 18:25 | NUR ---
SHIFT SUMMARY: NO ACUTE CHANGES SINCE PRIOR UPDATES. PT HAS SELF-PRONED THIS AFTERNOON FOR A NUMBER OF HOURS & TOLERATED THIS WELL W/ BED TURNED TO SIDE SO THAT TV CAN BE WATCHED. LS REMAIN DIM T/O, PT ON AIRVO W/ SETTINGS: 60 L/MIN & 90% FIO2. O2 SATS > 92% ON AVG, DESATS TO 87% INCREASED EXERTION. MONITOR SHOWS SR W/ HR 80s, BP STABLE. PT HAS NO GI COMPLAINTS & IS TOLERATING PO INAKE WELL. TEMP WEINSTEIN PATENT/ DRAINING YELLOW URINE - SEE I&O. SKIN CONDITION OVERALL INTACT, STAFF ASSIST W/ Q2H REPOSITIONING TO MAINTAIN SKIN INTEGRITY PRN, PT OTHERWISE REPOSITIONS SELF FOR COMFORT. WILL CONTINUE TO MONITOR & REPORT OFF TO ONCOMING RN.
--- NOTE | 2020-12-21 19:24 | NUR ---
CARE ASSUMED REPORT RECEIVED FROM GUDELIA QIU. PT BRENT, FOLLOWS. RT SIDE LAYING ON HF 90% 60L. WEINSTEIN IN PLACE DRAINING CL/YELLOW. CONTINUE ASSESSMENT.
--- NOTE | 2020-12-22 00:04 | NUR ---
REASSESSMENT. PT CONTINUES ON 90% 60L HF. NO CHANGES.
--- NOTE | 2020-12-22 05:37 | NUR ---
ONGOING ASSESSMENT PT STABLE OVERNIGHT, REMAINING ON 90% 60L HF. ASSISTED PT WITH TURNING AND PILLOW SUPPORT. PT BS: DECREASED, POSITVE STRONG PRODUCTIVE COUGH. PT DOES DESAT WITH COUGHING AND ACTIVITY TO SATS IN THE 80'S, TENDS TO RECOVER OVER APROX 10 MIN BACK TO SATS IN THE 90'S. CONTINUE TO ASSESS.
[2020-12-22 06:01] LABS: BASOPHILS ABSOLUTE AUTO 0.03 K/mm3 (0.00-0.23); BASOPHILS PERCENT AUTO 0 % (0-2); EOSINOPHILS ABSOLUTE AUTO 0.28 K/mm3 (0.00-0.68); EOSINOPHILS PERCENT AUTO 2 % (0-6); Hemoglobin 14.3 g/dL (11.5-16.0); IMMATURE GRAN ABSOLUTE AUTO 0.08 K/mm3 (0.00-0.10); IMMATURE GRAN PERCENT AUTO 1 % (0-1); LYMPHOCYTES ABSOLUTE AUTO 1.78 K/mm3 (0.84-5.20); LYMPHOCYTES PERCENT AUTO 13 % (21-46); MONOCYTES ABSOLUTE AUTO 1.33 K/mm3 (0.16-1.47); MONOCYTES PERCENT AUTO 10 % (4-13); Mean Corpuscular HGB 28.7 pg (26.0-34.0); Mean Corpuscular Volume 84 fL (80-100); Mean Platelet Volume 9.9 fL (9.1-12.4); NEUTROPHILS ABSOLUTE AUTO 9.87 K/mm3 (1.96-9.15); NEUTROPHILS PERCENT AUTO 74 % (41-73); Platelet Count 499 K/mm3 (150-400); RDW Coefficient Variation 14.1 % (11.7-14.2); RDW Standard Deviation 43.1 fL (35.1-46.3); Red Blood Cell Count 4.99 M/mm3 (3.80-5.20); White Blood Cell Count 13.37 K/mm3 (4.00-11.30)
[2020-12-22 06:25] LABS: Alanine Aminotransfer (ALT/SGP 30 U/L (12-78); Albumin, Blood 2.8 g/dL (3.4-5.0); Albumin/Globulin Ratio 0.6 (0.8-1.8); Alk Phos 84 U/L (50-136); Anion Gap 8 mmol/L (6-16); Aspartate Aminotrans (AST/SGOT 23 U/L (12-37); Bilirubin, Total 0.7 mg/dL (0.1-1.0); Blood Urea Nitrogen 32 mg/dL (8-24); CO2, Blood 34 mmol/L (21-32); Calcium, Blood 8.9 mg/dL (8.5-10.1); Chloride, Blood 91 mmol/L (98-108); Creatinine, Blood 0.89 mg/dL (0.40-1.00); Globulin, Blood 4.7 g/dL (2.2-4.0); Glomerular Filtration Rate >60 (60-); Glucose, Blood 107 mg/dL (70-99); Potassium, Blood 3.5 mmol/L (3.5-5.5); Sodium, Blood 133 mmol/L (136-145); Total Protein, Blood 7.5 g/dL (6.4-8.2)
--- NOTE | 2020-12-22 08:50 | NUR ---
ASSUMED CARE / DR CHAIDEZ: REPORT RECEIVED FROM JLUIS Gama RN. ASSUMED CARE OF THIS PT AT APPROX 0700. ON ASSESSMENT, THE PT IS AWAKE, A&O. SHE IS PLEASANT & COOPERATIVE W/ CARE. STS FEELING "BETTER" TODAY. LS DIM T/O, PT ON AIRVO W/ SETTINGS: 60 L/MIN & 90% FIO2. O2 SATS > 92% ON AVG W/ OCCASIONAL DESATS TO 87% DURING EXERTION. MONITOR SHOWS SR W/ HR 70s, BP STABLE. PT HAS NO GI COMPLAINTS & IS TOLERATING PO INTAKE WELL. WEINSTEIN PATENT/ DRAINING YELLOW URINE. SKIN CONDITION OVERALL CDI & PT ABLE TO REPOSITION SELF FOR COMFORT OR CALLS FOR ASSISTANCE PRN. PROVIDER HAS BEEN AT BEDSIDE THIS AM. NO CHANGES AT THIS TIME, CONTINUE POC PER [employer] ASSISTANT SERVICE. WILL CONTINUE TO MONITOR & UPDATE NEEDED.
--- NOTE | 2020-12-22 11:06 | NUR ---
CALL TO DR CHAIDEZ: CALL TO PROVIDER AT PT's REQUEST FOR C/O INTERMITTENT HEARTBURN, WORSE AFTER EATING BREAKFAST. ORDERS PLACED FOR TUMS.
--- NOTE | 2020-12-22 18:12 | NUR ---
SHIFT SUMMARY: NO ACUTE CHANGES SINCE PRIOR UPDATES. PT REMAINS A&O, PLEASANT & COOPERATIVE. LS DIM T/O, PT ON AIRVO W/ SETTINGS 60 L/MIN & 90% FIO2. SHE HAS DONE WELL W/ FOCUSED BREATHING & HAS EXPERIENCED LESS DESATS THIS SHIFT DURING PHYSICAL EXERTION. MONITOR SHOWS SR W/ HR 80s, BP STABLE. PT HAS HAD NO GI COMPLAINTS & IS TOLERATING PO INTAKE WELL. WEINSTEIN PATENT/ DRAINING DARK YELLOW URINE - SEE I&O. SKIN CONDITION OVERALL CDI & PT HAS BEEN ABLE TO REPOSITION SELF FOR COMFORT Q2H OR PRN. WILL CONTINUE TO MONITOR & REPORT OFF TO ONCOMING RN.
--- NOTE | 2020-12-22 19:15 | NUR ---
ASSUMED CARE OF PT. PT IS AWAKE AND ALERT, SITTING UPRIGHT WITH BACK SUPPORTED IN BED. PT DECLINES NEED FOR ANYTHING RIGHT NOW, VSS.
--- NOTE | 2020-12-22 20:00 | NUR ---
PT IS IN GOOD SPIRITS AND VERY TALKATIVE, SHARING ABOUT HER POSITIVE EXPERIENCE IN THE HOSPITAL, ABOUT HER FAMILY, AND ABOUT HOW SHE IS HOPEFUL ABOUT HER RECOVERY. PT RECOUNTS HOW SHE HAS TO MOVE AND REPOSITION SLOWLY TO AVOID CASAREZ AND DESATURATION. SHE IS CURRENTLY ON AIRVO AT 60L, 90% FIO2. PT STATES SHE IS FEELING TIRED AND HOPING TO SLEEP WELL TONIGHT.
[2020-12-23 00:24] LABS: PCO2 Arterial 46.8 mmHg (35-45); PO2 Arterial 72.5 mmHg (80-100); pH Blood Arterial 7.49 (7.35-7.45)
--- NOTE | 2020-12-23 01:15 | NUR ---
PT IS TRANSPORTED TO IMAGING FOR CT WITHOUT INCIDENT. RT AND MOLD CLEANER ACCOMPANIED.
--- NOTE | 2020-12-23 02:36 | NUR ---
CHANGE IN STATUS- AT APPROX 2240, PT HAD A COUGHING FIT AND SPO2 DROPPED TO THE LOW 80'S. PT STATES SHE CAN JUST BREATH THROUGH IT AND HER O2 SATURATION WILL IMPROVE, HOWEVER, IT DID NOT. PT INITIALLY REFUSES TO TRY PRONING OR BIPAP DUE TO CLAUSTROPHOBIA, BUT HER O2 SATURATION CONTINUES TO DECREASE. RT AND CHARGE ARE CALLED TO BEDSIDE AND PT IS PLACED ON BIPAP. SHE CONTINUES TO BECOME MORE DYSPNEIC ANS SPO2 DROPS TO THE 70'S, SO DR. HYATT IS CALLED AND ADVISES INTUBATION. DR. RIOS FROM ED COMES AND PLACES 8.0 ETT AT 25 AT TEETH. OG IS ALSO PLACED AND PLACEMENT OF BOTH ARE CONFIRMED BY X-RAY. ETT PULLED BACK TO 24CM AT TEETH.
[2020-12-23 04:13] LABS: BASOPHILS ABSOLUTE AUTO 0.03 K/mm3 (0.00-0.23); BASOPHILS PERCENT AUTO 0 % (0-2); EOSINOPHILS ABSOLUTE AUTO 0.25 K/mm3 (0.00-0.68); EOSINOPHILS PERCENT AUTO 2 % (0-6); Hematocrit 39.9 % (33.0-51.0); Hemoglobin 13.7 g/dL (11.5-16.0); IMMATURE GRAN ABSOLUTE AUTO 0.18 K/mm3 (0.00-0.10); IMMATURE GRAN PERCENT AUTO 1 % (0-1); LYMPHOCYTES PERCENT AUTO 10 % (21-46); MONOCYTES ABSOLUTE AUTO 1.67 K/mm3 (0.16-1.47); MONOCYTES PERCENT AUTO 10 % (4-13); Mean Corpuscular HGB 29.1 pg (26.0-34.0); Mean Corpuscular HGB Conc 34.3 g/dL (31.5-36.5); Mean Corpuscular Volume 85 fL (80-100); Mean Platelet Volume 9.9 fL (9.1-12.4); NEUTROPHILS ABSOLUTE AUTO 13.19 K/mm3 (1.96-9.15); NEUTROPHILS PERCENT AUTO 78 % (41-73); Platelet Count 471 K/mm3 (150-400); RDW Standard Deviation 42.7 fL (35.1-46.3); White Blood Cell Count 16.92 K/mm3 (4.00-11.30)
--- NOTE | 2020-12-23 05:22 | NUR ---
SHIFT SUMMARY-PT REMAINS INTUBATED AND COMFORTABLY SEDATED WITH PROPOFOL AT 25MCG/KG/MIN. VENT SETTINGS AC 14, TV 400, PEEP 10, DOWN FROM PEEP 14. BP TRENDING DOWN WITH SBP IN 80'S BUT MAP >65. WILL TITRATE PROPOFOL FOR LIGHT SEDATION. FIO2 HAS BEEN TITRATED TO 90% FROM 100% WITH SPO2 IN MID TO HIGH 90'S. AWAITING CALL FROM FAMILY FOR UPDATE WITH LAST NIGHT'S EVENTS. DR. HYATT WAS UNABLE TO CONTACT FAMILY LAST NIGHT. WILL CONTINUE TO MONITOR.
--- NOTE | 2020-12-23 17:44 | NUR ---
SHIFT SUMMARY PT SEDATED AND INTUBATED. VENT 14/400/5/65%, VITAL HP STARTED. AT GOAL NOW @25ML WITH 30ML H2O FLUSH Q4. BP'S HAVE BEEN SLIGHTLY SOFT ALL DAY, BUT MAP REMAINS ABOVE 65. TURNED EVERY 2 HOURS AND MOUTH CARE DONE Q4. URINE OUTPUT GOOD FROM WEINSTEIN, BUT TEMP PROBE DOES NOT WORK. PROP REMAINS AT 25. HIGHER AND BP DROPS, LOWER AND PATIENT AROUSES AND STARTS COUGHING. MINIMAL SUCTION DONE DUE TO ESOPHOGEAL TARE.
--- NOTE | 2020-12-23 19:15 | NUR ---
ASSUMED CARE OF PATIENT. SHE APPEARS COMFORTABLY SEDATED ON PROPOFOL AT 25MCG/KG/MIN. VS WNL.
--- NOTE | 2020-12-23 20:00 | NUR ---
PT AWAKENS EASILY TO VOICE. SHE MOTIONS FOR A WRITING INSTRUMENT AND PROCEEDS TO COMMUNICATE VERY CLEARLY HER QUESTIONS AND NEEDS. SHE IS AOX4/4, DENIES PAIN/ANXIETY, BUT OVER THE COURSE OF OUR CONVERSTATION SHE BECOMES TEARFUL AND UNCOMFORTABLE. SHE IS OFFERED ATIVAN FOR ANXIETY. PT WRITES EXTENSIVE NOTES THAT SHE REQUESTS FOR US TO SAVE FOR HER TO REVIEW LATER.
[2020-12-24 03:34] LABS: Bicarbonate Venous 37.8 mmol/L (24.0-30.0); PO2 Venous 133 mmHg (38-42); pH Blood Venous 7.59 (7.34-7.37)
[2020-12-24 04:09] LABS: BASOPHILS ABSOLUTE AUTO 0.02 K/mm3 (0.00-0.23); BASOPHILS PERCENT AUTO 0 % (0-2); EOSINOPHILS ABSOLUTE AUTO 0.47 K/mm3 (0.00-0.68); EOSINOPHILS PERCENT AUTO 4 % (0-6); Hematocrit 40.3 % (33.0-51.0); Hemoglobin 13.4 g/dL (11.5-16.0); IMMATURE GRAN ABSOLUTE AUTO 0.09 K/mm3 (0.00-0.10); IMMATURE GRAN PERCENT AUTO 1 % (0-1); LYMPHOCYTES ABSOLUTE AUTO 2.04 K/mm3 (0.84-5.20); LYMPHOCYTES PERCENT AUTO 15 % (21-46); MONOCYTES PERCENT AUTO 8 % (4-13); Mean Corpuscular HGB 28.5 pg (26.0-34.0); Mean Corpuscular HGB Conc 33.3 g/dL (31.5-36.5); Mean Corpuscular Volume 86 fL (80-100); NEUTROPHILS ABSOLUTE AUTO 9.79 K/mm3 (1.96-9.15); NEUTROPHILS PERCENT AUTO 73 % (41-73); Platelet Count 440 K/mm3 (150-400); RDW Coefficient Variation 14.1 % (11.7-14.2); RDW Standard Deviation 43.9 fL (35.1-46.3); Red Blood Cell Count 4.71 M/mm3 (3.80-5.20); White Blood Cell Count 13.51 K/mm3 (4.00-11.30)
[2020-12-24 04:26] LABS: Anion Gap 6 mmol/L (6-16); Blood Urea Nitrogen 30 mg/dL (8-24); Bun/Creatinine Ratio 42.9 (12.0-20.0); CO2, Blood 35 mmol/L (21-32); Calcium, Blood 8.3 mg/dL (8.5-10.1); Chloride, Blood 95 mmol/L (98-108); Glomerular Filtration Rate >60 (60-); Glucose, Blood 98 mg/dL (70-99); Magnesium, Blood 2.5 mg/dL (1.6-2.4); Phosphorus, Blood 2.7 mg/dL (2.5-4.9); Potassium, Blood 3.3 mmol/L (3.5-5.5); Sodium, Blood 136 mmol/L (136-145)
--- NOTE | 2020-12-24 04:44 | NUR ---
DR. HYATT UPDATED WITH LAB RESULTS. ORDERS FOR DECREASE VENT BACK UP RATE TO 12, 500ML IV FLUID BOLUS, AND 20MEQ KCL RIDER.
--- NOTE | 2020-12-24 06:13 | NUR ---
SHIFT SUMMARY PT REMAINS SEDATED, ON VENTILATOR WITH RASS 3-4 OVERNIGHT. FIO2 IS DECREASED TO 60% AND AC RATE DECREASED TO [address] HYATT FOLLOWING VBG RESULTS. WILL REPEAT AT 1200. PROPOFOL AT 20-30MCG/KG/MIN. NS BOLUS GIVEN THIS AM FOR HYPOTENSION AND KCL 20 MEQ RIDER ORDERED FOR K 3.3. PT WAS NOT ELIGIBLE FOR SBT DUE TO HIGH FIO2. TF IS AT GOAL WITH NO RESIDUALS. WILL CONTINUE TO MONITOR AND REPORT TO ONCOMING SHIFT.
--- NOTE | 2020-12-24 09:00 | NUR ---
ASSUMED CARE REPORT RECIEVED. PT IS LAYING IN BED INTUBATED AND MINIMALLY SEDATED. VENT SETTINGS AC 12, TV 400, PEEP 5, FIO2 40%. PT HYPOTENSIVE WITH SBP 70'S. NS BOLUS INFUSING AND PICC LINE PLACEMENT IN PROGRESS AT THIS TIME. PT SEDATED WITH PROPOFOL AT 25 MCG/KG/MIN. PT WITH COUGH AND GAG PRESENT. PT AROUSEABLE TO VERBAL STIMULI. PT FOLLOW SOME SIMPLE COMMANDS. SBW RESTRAINTS IN PLACE. OGT IN PLACE WITH TF AT 25 ML/HR, NO RESIDUALS NOTED. WEINSTEIN TEMP PROBE IN PLACE WITH YELLOW OUTPUT NOTED. DR COY AT WINDOW TO DISCUSS PLAN OF CARE. WILL CONTINUE TO MONITOR.
--- NOTE | 2020-12-24 12:09 | NUR ---
SBT DR COY AT BEDSIDE. PT SWITCHED TO PRESSURE SUPPORT 5/5, FIO2 40% AT 1100. PROPOFOL PLACED ON STANDBY. PT INITIALLY DOING WELL FOR THE FIRST 20 MINUTES OF SBT. PT FOLLOWING COMMANDS AND WRITING ON CLIPBOARD WITH PEN. PT WITH COUGHING FIT AND COPIOUS AMOUNT OF SECRETIONS NOTED. PT SPO2 82-84 DESPITE SUCTION AND 100% FIO2. PT SWITCHED BACK TO AC 12, TV 400, PEEP 5, FIO2 UP T0 60% AT 1145. PROPOFOL RESTARTED AT 25 MCG/KG/MIN. WILL CONTINUE TO MONITOR.
[2020-12-24 12:29] LABS: Base Excess Venous 12.2 mmol/L; Bicarbonate Venous 34.3 mmol/L (24.0-30.0); PCO2 Venous 50.1 mmHg (38-42); PO2 Venous 126 mmHg (38-42); pH Blood Venous 7.47 (7.34-7.37)
--- NOTE | 2020-12-24 16:51 | NUR ---
SHIFT SUMMARY NO ACUTE CHANGES THIS SHIFT. PT REMAINS INTUBATED AND SEDATED. PT DID NOT TOLERATE SBT WELL THIS MORNING. PT HAS SINCE REMAINED ON AC 12, TV 400, PEEP 5, FIO2 TITRATED BACK DOWN TO 40%. PT WITH COPIOUS ORAL AND ETT SECRETIONS WITH SUCTION. PT SEDATED WITH PROPOFOL AT 25 MCG/KG/MIN. PT IS AROUSEABLE TO VERBAL STIMULI. PT NODS HEAD AND FOLLOWS SIMPLE DIRECTIONS APPROPRIATELY. PT DENIES PAIN. OGT REMAINS IN PLACE WITH TF INFUSING AT 25 ML/HR GOAL RATE. PICC TO TING C/D/I. NS INFUSING TKO, NS 100 ML/HR, AND LEVOPHED AT 4 MCG/MIN. VITAL SIGNS HAVE REMAINED STABLE. WEINSTEIN REMAINS IN PLACE WITH YELLOW OUTPUT NOTED. PT DAUGHTER UPDATED VIA PHONE THIS SHIFT. WILL CONTINUE TO MONITOR AND REPORT OFF TO ONCOMING RN.
--- NOTE | 2020-12-24 19:30 | NUR ---
ASSUMING PT CARE: PT RESTING IN BED. INTUBATED & SEDATED. VENT: AC 12/400, 5/40. GTTs: LEVOPHED 4mcg/min, PROPOFOL 25mcg/kg/hr. PT AWAKES TO VERBAL STIMULI & IS ABLE TO FOLLOW COMMANDS & SCRIBE NEEDS W/ PEN & PAPER. CALM & COOPERATIVE. SEE SHIFT ASSESSMENT. CALL LIGHT W/IN REACH. WILL CONTINUE TO MONITOR & REPORT APPROPRIATE.
[2020-12-25 04:03] LABS: BASOPHILS ABSOLUTE AUTO 0.03 K/mm3 (0.00-0.23); BASOPHILS PERCENT AUTO 0 % (0-2); EOSINOPHILS ABSOLUTE AUTO 0.48 K/mm3 (0.00-0.68); EOSINOPHILS PERCENT AUTO 4 % (0-6); Hematocrit 36.8 % (33.0-51.0); Hemoglobin 12.1 g/dL (11.5-16.0); IMMATURE GRAN PERCENT AUTO 1 % (0-1); LYMPHOCYTES ABSOLUTE AUTO 2.35 K/mm3 (0.84-5.20); LYMPHOCYTES PERCENT AUTO 20 % (21-46); MONOCYTES ABSOLUTE AUTO 0.94 K/mm3 (0.16-1.47); MONOCYTES PERCENT AUTO 8 % (4-13); Mean Corpuscular HGB 28.7 pg (26.0-34.0); Mean Corpuscular HGB Conc 32.9 g/dL (31.5-36.5); Mean Corpuscular Volume 87 fL (80-100); Mean Platelet Volume 10.1 fL (9.1-12.4); NEUTROPHILS ABSOLUTE AUTO 7.91 K/mm3 (1.96-9.15); NEUTROPHILS PERCENT AUTO 67 % (41-73); Platelet Count 424 K/mm3 (150-400); RDW Coefficient Variation 14.5 % (11.7-14.2); Red Blood Cell Count 4.21 M/mm3 (3.80-5.20); White Blood Cell Count 11.81 K/mm3 (4.00-11.30)
[2020-12-25 04:20] LABS: Anion Gap 5 mmol/L (6-16); Blood Urea Nitrogen 25 mg/dL (8-24); Bun/Creatinine Ratio 46.4 (12.0-20.0); CO2, Blood 33 mmol/L (21-32); Calcium, Blood 7.8 mg/dL (8.5-10.1); Chloride, Blood 104 mmol/L (98-108); Creatinine, Blood 0.54 mg/dL (0.40-1.00); Glomerular Filtration Rate >60 (60-); Glucose, Blood 112 mg/dL (70-99); Magnesium, Blood 2.3 mg/dL (1.6-2.4); Phosphorus, Blood 2.1 mg/dL (2.5-4.9); Potassium, Blood 3.5 mmol/L (3.5-5.5); Sodium, Blood 142 mmol/L (136-145)
--- NOTE | 2020-12-25 06:37 | NUR ---
SHIFT SUMMARY: PT REMAINS INTUBATED & SEDATED. VENT: AC 12/400, 5/40%. GTTs: PROPOFOL 8mcg/kg/min, PRECEDEX 0.2mcg/kg/hr, LEVOPHED 4mcg/min. NEURO STATUS UNCHANGED. PT IS ABLE TO SCRIBE HER NEEDS W/ PEN & PAPER, ORIENTED x4. SHE IS OFTEN TEARFUL WHEN ASKING ABOUT HER PROGRESSION BUT IS IN GOOD SPIRITS & THANKFUL TO STAFF. PROPOFOL DEC THROUGHOUT THE NIGHT & PRECEDEX INC, PT REACHED AN ACCEPTABLE LEVEL OF SEDATION, HOWEVER PT BECAME BRADYCARDIC & TIMES W/ HR 46-50. PRECEDEX DEC & PT RECOVERED WELL. WILL CONTINUE TO MONITOR UNTIL REPORT OFF TO ONCOMING RN.
--- NOTE | 2020-12-25 07:45 | NUR ---
ASSUMED CARE REPORT RECIEVED. PT IS LAYING IN BED AWAKE, ALERT, AND ORIENTED. PT IS INTUBATED WITH MINIMAL SEDATION. VENT SETTINGS AC 12, TV 400, PEEP 5, FIO2 40%. PT WITH COPIOUS ORAL AND ETT SECRETIONS NOTED. PT FOLLOWS DIRECTIONS WELL. PT USES PEN AND CLIP BOARD TO COMMUNICATE NEEDS. PICC TO TING C/D/I, NS INFUSING AT 100 ML/HR, NS TKO, AND PRECEDEX AT 0.2 MCG/KG/HR. OGT IN PLACE WITH TF AT 25 ML/HR. WEINSTEIN IN PLACE WITH YELLOW OUTPUT NOTED. SBW RESTRAINTS IN PLACE. VITAL SIGNS STABLE WITH LEVOPHED INFUSING AT 3 MCG/MIN. WILL CONTINUE TO MONITOR.
--- NOTE | 2020-12-25 11:05 | NUR ---
SBT DR COY AT BEDSIDE. PT SWITCHED TO PRESSURE SUPPORT /, FIO2 40%. PT TOLERATING WELL. TF PLACED ON STANDBY. PLAN TO EXTUBATE AT 1130 IF PT CONTINUES TO DO WELL WITH PS MODE.
--- NOTE | 2020-12-25 12:28 | NUR ---
EXTUBATION PT EXTUBATED AT 1138 WITH RT AT BEDSIDE. PT PLACED ON 4L O2 NC. PT CLEARING SECRETIONS WELL. SPO2 REMAINS >92%. PT DAUGHTER UPDATED VIA PHONE. PT DENIES SOB AT THIS TIME. WILL CONTINUE TO MONITOR.
--- NOTE | 2020-12-25 16:26 | NUR ---
SHIFT SUMMARY PT DOING WELL THIS SHIFT S/P EXTUBATION. PT REMAINS ALERT AND ORIENTED. PT IS CALM AND ANSWERS QUESTIONS APPROPRIATELY. PT DENIES PAIN OR DISCOMFORT. VITAL SIGNS STABLE. LEVOPHED ON STANDBY. O2 TITRATED DOWN TO 3L VIA NC. PT TOLERATING SIPS OF WATER AND ICE CHIPS WELL. PICC TO TING C/D/I. NS INFUSING TKO. PRECEDEX REMAINS AT 0.2 MCG/KG/HR. WEINSTEIN IN PLACE WITH YELLOW URINE OUTPUT NOTED. PT IS ABLE TO SHIFT SELF SIDE TO SIDE IN BED FOR COMFORT. WILL CONTINUE TO MONITOR AND REPORT OFF TO ONCOMING RN.
[2020-12-25 18:10] LABS: PCO2 Arterial 42.4 mmHg (35-45)
--- NOTE | 2020-12-25 19:30 | NUR ---
ASSUMING PT CARE: PT SITTING UP IN BED. A&O x4. FOLLOWING COMMANDS W/OUT DIFF. APPROPRIATELY INTERACTIVE W/ STAFF. PRECEDEX GTT @ 0.3mcg/kg/min FOR ANXEITY. LEVOPHED GTT @ 3mcg/min. PT IS ON 3L/MIN VIA NC & TOLERATING WELL W/ SPO2 >94%. WILL CONTINUE TO MONITOR & REPORT APPROPRIATE.
[2020-12-26 05:38] LABS: PCO2 Arterial 41.5 mmHg (35-45); PO2 Arterial 63.7 mmHg (80-100); pH Blood Arterial 7.51 (7.35-7.45)
--- NOTE | 2020-12-26 06:13 | NUR ---
SHIFT SUMMARY: PT RESTED WELL LAST NIGHT. LEVOPHED TITRATED DOWN THROUGHOUT THE NIGHT & IS NOW ON STANDBY. SBP STABLE. PRECEDEX GTT FOR ANXIETY CONTINUED TO CAUSE BRADYCARDIA W/ HR IN THE 40s. PLACED ON SB @ 2130. PT HAS SINCE TOLERATED WELL W/ NO C/O ANXIETY. O2 NEEDS DID INC TO 6L/MIN VIA NC EARLY ON IN THE NIGHT, HOWEVER SPO2 HAS BEEN CONSISTENTLY STABLE @ >93%. NO ACUTE NEG CHANGES. PT CONTINUES TO BE IN GOOD SPIRITS, EAGER TO PARTICIPATE IN CARE & GET WELL. WILL CONTINUE TO MONITOR UNTIL REPORT OFF TO ONCOMING RN.
[2020-12-26 07:00] LABS: BASOPHILS ABSOLUTE AUTO 0.04 K/mm3 (0.00-0.23); BASOPHILS PERCENT AUTO 0 % (0-2); EOSINOPHILS ABSOLUTE AUTO 0.37 K/mm3 (0.00-0.68); EOSINOPHILS PERCENT AUTO 4 % (0-6); Hematocrit 37.9 % (33.0-51.0); Hemoglobin 12.5 g/dL (11.5-16.0); IMMATURE GRAN ABSOLUTE AUTO 0.05 K/mm3 (0.00-0.10); IMMATURE GRAN PERCENT AUTO 1 % (0-1); LYMPHOCYTES ABSOLUTE AUTO 2.31 K/mm3 (0.84-5.20); LYMPHOCYTES PERCENT AUTO 25 % (21-46); MONOCYTES ABSOLUTE AUTO 0.85 K/mm3 (0.16-1.47); MONOCYTES PERCENT AUTO 9 % (4-13); Mean Corpuscular Volume 88 fL (80-100); Mean Platelet Volume 10.1 fL (9.1-12.4); NEUTROPHILS ABSOLUTE AUTO 5.64 K/mm3 (1.96-9.15); NEUTROPHILS PERCENT AUTO 61 % (41-73); Platelet Count 326 K/mm3 (150-400); RDW Coefficient Variation 14.7 % (11.7-14.2); Red Blood Cell Count 4.31 M/mm3 (3.80-5.20); White Blood Cell Count 9.26 K/mm3 (4.00-11.30)
[2020-12-26 07:16] LABS: Anion Gap 4 mmol/L (6-16); Blood Urea Nitrogen 24 mg/dL (8-24); Bun/Creatinine Ratio 40.7 (12.0-20.0); CO2, Blood 32 mmol/L (21-32); Calcium, Blood 8.1 mg/dL (8.5-10.1); Chloride, Blood 106 mmol/L (98-108); Creatinine, Blood 0.59 mg/dL (0.40-1.00); Glomerular Filtration Rate >60 (60-); Glucose, Blood 82 mg/dL (70-99); Magnesium, Blood 2.3 mg/dL (1.6-2.4); Phosphorus, Blood 2.3 mg/dL (2.5-4.9); Potassium, Blood 3.4 mmol/L (3.5-5.5); Sodium, Blood 142 mmol/L (136-145)
--- NOTE | 2020-12-26 08:30 | NUR ---
ASSUMED CARE REPORT RECIEVED. PT IS LAYING IN BED AWAKE, ALERT, AND ORIENTED. PT ANSWERS QUESTIONS APPROPRIATELY. PT VOICE IS SOFT. PT DENIES PAIN OR DISCOMFORT. VITAL SIGNS STABLE. PT ON 3L O2 NC. PICC TO TING C/D/I. NS INFUSING TKO. WEINSTEIN IN PLACE WITH YELLOW URINE OUTPUT NOTED. PT SHIFTING SELF IN BED INDEPENDENTLY. WILL CONTINUE TO MONITOR.
--- NOTE | 2020-12-26 17:02 | NUR ---
SHIFT SUMMARY PT DOING WELL THIS SHIFT. PT HAS REMAINED AWAKE, ALERT, AND ORIENTED THROUGHOUT THE SHIFT. PT IS PLEASANT AND PARTICIPATES IN CARE WELL. PT DENIES PAIN OR DISCOMFORT. VITAL SIGNS STABLE. PT ON 3L O2 NC. PICC TO TING C/D/I, SALINE LOCKED. PT TOLERATING PO DIET WELL. WEINSTEIN REMAINS IN PLACE WITH YELLOW URINE OUTPUT NOTED. PT WORKED WITH PHYSICAL THERAPY TODAY AND HAS REPOSITIONED SELF IN BED INDEPENDENTLY FOR COMFORT. WILL CONTINUE TO MONITOR AND REPORT OFF TO ONCOMING RN.
--- NOTE | 2020-12-26 20:00 | NUR ---
ASSUMING PT CARE: PT SITTING UP IN BED, WATCHING TV. APPROPRIATELY INTERACTIVE W/ STAFF, ORIENTED x3. PT CONTINUES TO HAVE VERY LOOSE, PRODUCTIVE COUGH W/ COPIOUS AMT OF CLEAR & WHITE SPUTUM. PT ABLE TO PERFORM ORAL SUCTION W/ CANNULA W/O DIFF. SPO2 >95% ON 3L/MIN. WILL CONTINUE TO MONITOR & REPORT APPROPRIATE.
--- NOTE | 2020-12-27 05:58 | NUR ---
SHIFT SUMMARY: PT RESTED WELL THROUGHOUT THE NIGHT. SATS MAINTAINED >92% OTHER THAN WHEN REPOSITIONING SELF IN BED. PT CONTINUES TO BE PLEASANT & IN GOOD SPIRITS. NO ACUTE CHANGES TO BE REPORTED.
--- NOTE | 2020-12-27 07:30 | NUR ---
PT RECEIVED FROM UYEN ORELLANA. DENIES ANY C/O. STATES SHE IS SO HAPPY TO BE DOING BETTER. LUNGS DIM,BOWEL TONES ACTIVE, PULSES GOOD, WEINSTEIN DRAINING TO GRAVITY DRAINAGE. SATS >90%.
[2020-12-27 09:07] LABS: Albumin, Blood 2.7 g/dL (3.4-5.0); Anion Gap 4 mmol/L (6-16); Blood Urea Nitrogen 26 mg/dL (8-24); Bun/Creatinine Ratio 40.5 (12.0-20.0); CO2, Blood 31 mmol/L (21-32); Calcium, Blood 8.1 mg/dL (8.5-10.1); Chloride, Blood 106 mmol/L (98-108); Creatinine, Blood 0.64 mg/dL (0.40-1.00); Glomerular Filtration Rate >60 (60-); Glucose, Blood 115 mg/dL (70-99); Magnesium, Blood 2.2 mg/dL (1.6-2.4); Phosphorus, Blood 2.8 mg/dL (2.5-4.9); Potassium, Blood 3.4 mmol/L (3.5-5.5); Sodium, Blood 141 mmol/L (136-145)
--- NOTE | 2020-12-27 09:30 | NUR ---
PT ASSISTED WITH PARTIAL BED BATH, SHE DID THE MAJORITY OF THE WORK. TOLERATED WELL. ENJOYED BEING ABLE TO DO THE "LITTLE THINGS".
--- NOTE | 2020-12-27 18:42 | NUR ---
EDGAR HAS BEEN ON 3L/NC ALL DAY, SHE HAS WORKED WITH SPEECH THERAPY AND OCCUPATIONAL THERAPY TODAY. [place] AL[place] [facility] [place] SHE HAS VISITED WITH FAMILY THROUGH THE OUTSIDE WINDOW AND WITH THIS RN. SHE IS IN GREAT SPIRITS, HAS TAKEN HER FOOD WELL BUT DIMINISHED THROUGHOUT THE DAY. SHE IS MOVING ALL EXTREMITIES AND EXERCISING HER LEGS WHILE IN BED. SHE ASKED PHYS.THERAPY TO COME BACK TOMORROW. SHE STATES SHE IS RECOGNIZING WHEN SHE IS "DOING TOO MUCH" WITH HER BREATHING AND WHEN SHE IS "RECOVERING" AND HOW THE DIFFERENCE IS. WILL REPORT OFF TO THE NEXT SHIFT.
--- NOTE | 2020-12-27 23:25 | NUR ---
ASSUMED CARE AT 1900 PT LAYING IN BED WATCHING TV. PT IS ALERT/ORIENTED AND ABLE TO MAKE HER NEEDS KNOWN. SPO2 >95% ON 3L, PT ABLE TO USE JANCOUR SUCTION FOR SECREATIONS. VSS. WEINSTEIN PATENT AND DRAINING TO GRAVITY. PICC IN PLACE AND SL. SEE SHIFT ASSESSMENT FOR FULL ASSESSMENT.
--- NOTE | 2020-12-28 06:57 | NUR ---
END OF SHIFT SUMMARY PT SLEPT FOR MOST OF THE NIGHT. PT ALERT/ORIENTED AND ABLE TO MAKE HER NEEDS KNOWN. SPO2 >90% ON 3L. VSS. WEINSTEIN PATENT AND DRAINING TO GRAVITY. PICC TO TING PATENT. WILL REPORT TO AM RN WHEN AVAILABLE.
[2020-12-28 07:08] LABS: Albumin, Blood 2.5 g/dL (3.4-5.0); Anion Gap 3 mmol/L (6-16); Blood Urea Nitrogen 24 mg/dL (8-24); Bun/Creatinine Ratio 39.5 (12.0-20.0); CO2, Blood 33 mmol/L (21-32); Calcium, Blood 8.3 mg/dL (8.5-10.1); Chloride, Blood 106 mmol/L (98-108); Creatinine, Blood 0.61 mg/dL (0.40-1.00); Glomerular Filtration Rate >60 (60-); Glucose, Blood 95 mg/dL (70-99); Phosphorus, Blood 3.7 mg/dL (2.5-4.9); Potassium, Blood 3.7 mmol/L (3.5-5.5); Sodium, Blood 142 mmol/L (136-145)
--- NOTE | 2020-12-28 07:25 | NUR ---
ARRIVAL TO ICU/END OF SHIFT SUMMARY PT ARRIVED TO ICU 1 AT 0511 VIA MEDICAL FLOOR BED. PT EYES ARE OPEN AND SHE IS MINIMALLY REPONSIVE TO VERBAL STIMULI AND OCCATIONALLY NODING YES/NO TO QUESTION. PT FOLLOWS MINIMAL DIRECTIONS LIKE WEAKLY SQUEEZING HANDS BUT NOT MOVING BLE. SPO2 >95% ON 3L, BILAT LOWER LOBES DIMINISHED. HR 90'S. SBP 100'S. NG CLAMPED AT THIS TIME; ABD MODERATLY DISTENDED. WEINSTEIN PATENT AND DRAINING TO GRAVITY. CLINIMIX INFUSING AT 50ML/HR VIA PICC TO TING. DIALASIS CATH TO RIJ NOTED AND CLAMPED. REPORT GIVEN TO JAY QIU.
--- NOTE | 2020-12-28 07:30 | NUR ---
ASSUMED CARE: PT RESTING QUIETLY AT THIS TIME. NC AT 3L AT THIS TIME. NSR ON TELE. NO ACUTE NEEDS OR CONCERNS AT THIS TIME.
--- NOTE | 2020-12-28 18:50 | NUR ---
Spiritual care note: Stella expressed enormous gratitude to God and ICU staff for her recovery. She states "Its a miracle to have survived all this." She excitedly told me her plans for the future and her renewed dioni in a loving God. Stella respnded well to emotional affirmation and prayer. I will remain available.
--- NOTE | 2020-12-28 19:20 | NUR ---
ASSUMPTION OF CARE RECEIVED REPORT FROM LUIS ALFREDO QIU. ASSUMED CARE OF PATIENT. PATIENT SITTING UP IN BED, A/O, STATES ANXIETY IS GONE AFTER SPEAKING WITH DAUGHTER VIA T/P. VITAL STABLE ON 3L 02 VIA NC. REVIEWED ORDERED, WILL TREAT PRESCRIBED. CALL LIGHT IN REACH.
--- NOTE | 2020-12-28 19:40 | NUR ---
SHIFT SUMMARY: PT ALERT AND ORIENTED, PLEASANT COOPERATIVE. ON 3L O2. WORKED WITH PHYSICAL THERAPY AND GOT UP TO CHAIR FOR SEVERAL HOURS THIS SHIFT. SPOKE WITH FAMILY MEMBER THROUGH THE WINDOW. NO ACUTE NEEDS OR CONCERNS AT THIS TIME.
--- NOTE | 2020-12-28 23:58 | NUR ---
REASSESSMENT NO ACUTE CHANGES FROM PREVIOUS ASSESSMENT. PATIENT IN BED WITH EYES CLOSED, NO S/S OF DISTRESS. VITALS STABLE. CALL LIGHT IN REACH.
--- NOTE | 2020-12-29 06:03 | NUR ---
SHIFT SUMMARY PATIENT REMAINS A/O, 2L 02 VIA NC WITH SATS ABOVE 95%. TUMS PROVIDED FOR REPORTS OF HEART BURN. VITALS STABLE. WILL CONTINUE TO MONITOR AND REPORT TO ONCOMING RN.
--- NOTE | 2020-12-29 08:40 | NUR ---
INITIAL ASSESSMENT PATIENT ALERT AND ORIENTED X 4, AFEBRILE. PATIENT PLEASANT AND COOPERATIVE. PATIENT STATES SHE HAS SOME THROAT PAIN FROM COUGHING BUT THAT THE PAIN IS MANAGEABLE AT THIS TIME. PATIENT WEAK, 1 PERSON ASSIST. PATIENT SATTING LOW 90S ON 2 L O2 VIA NC. WHEEZES HEARD THROUGHOUT LUNG LOBES. PATIENT COUGHING UP SMALL AMOUNTS OF TENACIOUS, CLEAR SPUTUM. PATIENT SOB WITH EXERTION; TACHYPNEIC. HR IN THE 80S. SBP IN THE 130S. PATIENT HAS GOOD APPETITE. LAST BM ON THE . WEINSTEIN IN PLACE DRAINING YELLOW COLORED URINE. PATIENT REPOSITIONING SELF IN BED. TING PICC LINE FLUSHED AND SALINE LOCKED. BED LOW, CALL LIGHT IN REACH. WILL CONTINUE TO MONITOR THROUGHOUT SHIFT.
--- NOTE | 2020-12-29 12:00 | NUR ---
PATIENT UP TO CHAIR. HR IN THE 90S. SBP 1-TEENS. SATTING LOW 90S ON 2 TO 4 L NC. PATIENT HAD HARD STOOL. NO OTHER ACUTE CHANGES TO NOTE ON AT THIS TIME. WILL CONTINUE TO MONITOR.
--- NOTE | 2020-12-29 13:51 | NUR ---
SHIFT SUMMARY PATIENT HAS REMAINED ALERT AND ORIENTED X 4, AFEBRILE. PATIENT 1 PERSON ASSIST TO CHAIR. PATIENT SOB WITH EXERTION. PATIENT ON 2 TO 4 L NC TO KEEP SATS ABOVE 90%. PATIENT REMAINED IN SR, HR 80S TO 90S. SBP 1-TEENS TO 130S. PATIENT HAD 1 STOOL THIS SHIFT. PATIENT HAS REMAINED SHIFTING OWN HIPS IN BED AND IN CHAIR. PATIENT SITTING IN CHAIR WATCHING TV AT THIS TIME. PATIENT WILL BE TRANSFERRING TO PCU SHORTLY.
--- NOTE | 2020-12-29 14:40 | NUR ---
PATIENT SUCCESSFULLY TRANSFERRED TO PCU 12. ALL BELONGINGS SENT WITH PATIENT.
--- NOTE | 2020-12-29 17:48 | NUR ---
SHIFT SUMMARY RECEIVIED REPROT FROM RE RECORDING MIXER GABE. PT TO ROOM VIA BED AT 1424. PT SCOOTED FROM ICU BED. PT ORIENTED TO ROOM AND CALL LIGHT; EDUCATED ON FALL RISK. PT A&Ox4; ANXIOUS AT TIMES BUT COOPERATIVE WITH CARE. PT RESTING IN BED, UP IN CHAIR FOR DINNER. 1 PERSON ASSIST TO BSC/CHAIR. PT INCREASED SOB WITH EXERTION; PT ON 4L O2 VIA NC WHEN PT GOT TO ROOM TITRATED UP TO 6L O2 VIA HIGH FLOW NC. PT DESATURATED QUICKLY WITH ACTIVITY AND TAKES TIME TO RECOVER. PT DENIES PAIN, CHEST PAIN, NAUSEA AND DIZZINESS. PT REPORTS POOR APPETITE. OTHER VSS. NO OTHER ACUTE CHAGNES NOTED. WILL CONTINUE TO MONITOR UNITL REPORT GIVEN TO ONCOMING RN.
--- NOTE | 2020-12-30 05:16 | NUR ---
SHIFT SUMMARY PT RESTED WELL THROUGH NIGHT - ALERT AND ORIENTED. ABLE TO MAKE NEEDS KNOWN. SATS >90% ON 2LNC. NO TELE, BUT HR AND BP STABLE. NO C/O OF CP. WEINSTEIN IN PLACE, DRAINING TO GRAVITY, RABIA CARE PERFORMED. NO BM. PT DID C/O SOME ANXIETY EARLIER IN NIGHT - ONE TIME ATIVAN WAS GIVEN WITH IMPROVEMENT IN ANXIETY. VSS. \ CALL LIGHT WITHIN REACH, BED IN LOWEST POSITION. WILL CONTINUE TO MONITOR.
--- NOTE | 2020-12-30 09:00 | NUR ---
pt laying in bed awake a/ox3, pleasant and cooperative with care, follows commands well, denies pain, just sob, she is currently on 1 liter of 02 via n/c, lungs are dim t/o, some occ wheezing in bases, resp even and unlabored, productive cough of white and blood tinged sputum, self suctions, hrr, tele in place running sr per monitor, see strip, no edema noted, ppp+2, cap refill <3sec, vs stable, afebrile, iv site is clear and patent, btx4, abd flat soft notnender, reports bm last night, jones cath in place draining clear yellow urine, she is getting up to chair, will remove jones later if doing well, skin c/w/d, khushboo, luci, sandra, call light in reach.
--- NOTE | 2020-12-30 11:12 | NUR ---
pt has been up to a chair, brushed her teeth, worked with O.T. she is medical status and will be moving up to medical, gave report to Ines QIU. will transfer pt via wheelchair with customer experience retail clerk in attendence.
--- NOTE | 2020-12-30 17:19 | NUR ---
SHIFT SUMMARY PCU TRANSFER AT LUNCH TIME. PATIEN DENIES PAIN, NAUSEA, AND SHORTNESS OF BREATH. PATIENT UP SBA TO BSC AND UP IN CHAIR FOR MEALS. MAINTAINING OXYGEN SATURATION ABOVE 90% ON 1-2 L/NC. CORINNA OLIVARES. SISTER VISITED IN AFTERNOON.
--- NOTE | 2020-12-31 03:29 | NUR ---
SHIFT SUMMARY NO ACUTE CHANGES TO REPORT THIS SHIFT. PT HAS RESTED MOST OF THE NIGHT, SHE HAS DENIED NEEDS. OCCASIONAL SOB WITH EXERTION AND PRODUCTIVE COUGH, BUT THERE ARE NO ACUTE RESPIRATORY CHANGES. PT HAS DENIED NEEDS T/O SHIFT, AND HAS VOIDED SINCE CATHETER WAS REMOVED YESTERDAY AFTERNOON. ASSESSMENT UNCHANGED. BED IN LOWEST POSITION, CALL LIGHT WITHIN REACH.
[2020-12-31 06:15] LABS: Hematocrit 36.8 % (33.0-51.0); Hemoglobin 12.3 g/dL (11.5-16.0); Mean Corpuscular HGB 29.1 pg (26.0-34.0); Mean Corpuscular HGB Conc 33.4 g/dL (31.5-36.5); Mean Corpuscular Volume 87 fL (80-100); Platelet Count 179 K/mm3 (150-400); RDW Coefficient Variation 15.5 % (11.7-14.2); RDW Standard Deviation 47.9 fL (35.1-46.3); Red Blood Cell Count 4.23 M/mm3 (3.80-5.20); White Blood Cell Count 5.47 K/mm3 (4.00-11.30)
[2020-12-31 06:33] LABS: Albumin, Blood 2.7 g/dL (3.4-5.0); Anion Gap 6 mmol/L (6-16); Blood Urea Nitrogen 13 mg/dL (8-24); Bun/Creatinine Ratio 20.2 (12.0-20.0); CO2, Blood 28 mmol/L (21-32); Calcium, Blood 8.2 mg/dL (8.5-10.1); Chloride, Blood 108 mmol/L (98-108); Creatinine, Blood 0.64 mg/dL (0.40-1.00); Glomerular Filtration Rate >60 (60-); Glucose, Blood 96 mg/dL (70-99); Phosphorus, Blood 3.7 mg/dL (2.5-4.9); Potassium, Blood 3.9 mmol/L (3.5-5.5); Sodium, Blood 142 mmol/L (136-145)
--- NOTE | 2020-12-31 17:02 | NUR ---
SUMMARY PT SITTING UP IN THE CHAIR AT THE BEDSIDE VISITING WITH FAMILY, PT HAS BEEN UP TO WORK WITH THERAPY TODAY, AURELIO WELL, CONT TO BE ON OXYGEN, PT HAS BEEN PLEASANT AND COOPERATIVE WITH CARE, NO COMPLAINTS, PLAN TO DC TO SNF SOON, VSS, WILL CONT TO MONITOR
--- NOTE | 2020-12-31 19:00 | NUR ---
ASSUMED CARE RECEIVED REPORT FROM UYEN CLEMONS. PT RESTING IN BED QUIETLY, IN NO ACUTE DISTRESS. NO ACUTE NEEDS ASSESSED AT THIS TIME. CALL LIGHT, POSSESSIONS IN REACH. WILL CONTINUE TO MONITOR.
--- NOTE | 2021-01-01 06:00 | NUR ---
SALES MGR SUMMARY PT SITTING UP IN BED, IN NO ACUTE DISTRESS. VS REVIEWED, O2 SATS STABLE ON 2L/NC. PT SLEPT THROUGHOUT THE NIGHT. NO ACUTE CHANGES IN CONDITION NOTED. UP TO BSC WITH SBA, TOLERATED WELL. CALL LIGHT, POSSESSIONS IN REACH, WILL REPORT OFF TO ONCOMING RN.
--- NOTE | 2021-01-01 18:04 | NUR ---
SHIFT SUMMARY NO ACUTE CHANGES TO REPORT THIS SHIFT. PT IS BEEN UP IN CHAIR FOR MOST OF THE SHIFT. ABLE TO MAKE NEEDS KNOWN. DENIES PAIN. OCCASIONAL SOB WITHEXERTION AND WITH TALKING. COUGH CAN BE PRODUCTIVE AT TIMES. PT DID COME TO VISIT DURING VISITING HOURS. PT STATED HAVING CLAUSTROPHOBIA AND PREFERS TO HAVE DOOR OPEN. PT CURENTLY IN ROOM, CALL LIGHT W/IN REACH.
--- NOTE | 2021-01-01 19:05 | NUR ---
ASSUMED CARE RECEIVED REPORT FROM UYEN MARQUEZ. PT RESTING IN BED, NO ACUTE DISTRESS NOTED, RESPS E/U. DENIES PAIN OR NEEDS AT THIS TIME. CALL LIGHT, POSSESSIONS IN REACH. CONTINUE TO MONITOR.
--- NOTE | 2021-01-02 03:02 | NUR ---
ASSOCIATE FACULTY SUMMARY PT RESTING QUIETLY, IN NO ACUTE DISTRESS. VS REVIEWED, WNL. O2 SATS STABLE. PT HAS BEEN UP TO USE BSC, TOLERATING WELL. REPORTS IMPROVED ACTIVITY TOLERANCE IN COMPARISON TO YESTERDAY. MEDICATED FOR C/O HEARTBURN, WITH GOOD RELIEF. HAD LOOSE STOOLS X1, NO FURTHER GI COMPLAINTS. DENIES FURTHER NEEDS AT THIS TIME. CALL LIGHT, POSSESSIONS IN REACH. WILL REPORT OFF TO ONCOMING RN.
--- NOTE | 2021-01-02 17:26 | NUR ---
PT SITIING BEDSIDE EATING DINNER WITH DAUGHTER. PT MAKES NO COMPLAINTS OF SOB OR ANXIETY AT THIS TIME. HOWEVER, SHE STATES SHE GETS ANXIETY IN THE EVENING WHEN HER COUGHING ACTS UP. PRN ATIVAN WAS ORDERED. PT REMAINS INDEPENDENT IN ROOM, CALL LIGHT WITHIN REACH AND BED IN LOW POSITION. IV SL AND WNL. STAFF WILL CONT. TO MONITOR.
--- NOTE | 2021-01-02 19:06 | NUR ---
ASSUMED CARE RECEIVED REPORT FROM UYEN LOPEZ. PT SITTING UP IN BED, IN NO ACUTE DISTRESS. DENIES DISCOMFORT OR NEEDS AT THIS TIME. CALL LIGHT, POSSESSIONS IN REACH, CONTINUE TO MONITOR.
--- NOTE | 2021-01-03 04:06 | NUR ---
DRAFTER ELECTRONIC SUMMARY PT HAS BEEN ASLEEP T/O MUCH OF THE NIGHT, NO ACUTE CHANGES TO REPORT THIS SHIFT. VS REVIEWED, O2 SATS STABLE ON 2L/NC. PT REPORTS BREATHING HAS IMPROVED. HELD SCHEDULED BOWEL MEDS FOR LOOSE STOOLS, MEDICATED FOR C/O ANXIETY, NO FURTHER COMPLAINTS AT THIS TIME. DENIES PAIN OR NEEDS. CALL LIGHT, POSSESSIONS IN REACH. WILL REPORT OFF TO ONCOMING RN.
--- NOTE | 2021-01-03 06:00 | NUR ---
NOTIFIED DR. BLUE THAT PT'S HS BOWEL MEDS WERE HELD D/T LOOSE STOOLS. NO NEW ORDERS RECEIVED. CONTINUE TO MONITOR.
--- NOTE | 2021-01-03 17:00 | NUR ---
PATIENT HAD A GOOD DAY. UP WITH FWW AND SBA TO RESTROOM, INDEPENDENT TO BSC. 2LO2 TO MAINTAIN SATS. SOB WITH EXERTION AND CONVERSATION. ATIVAN GIVEN LAST NIGHT AND PATIENT WAS ABLE TO SLEEP WELL. SKIN INTACT. 3 LUMEN PICC TO TING. VSS. TOLERATING SOFT DIET. PLAN IS TO DC TO SNF. NO NEW CONCERNS THIS SHIFT.
--- NOTE | 2021-01-04 05:49 | NUR ---
SHIFT SUMMARY: VSS. AFEB. 02 91% ON 1L VIA NC. ATTEMPTS TO LEAVE 02 OFF BUT 02 DECREASED TO 87%, 1 L PLACED AND SATS REMAINED IN THE LOW 90'S WHILE AT REST. PT DESATTED TO 84% WHEN ATTEMPTING TO GET UP AND AMBULATE TO THE BATHROOM THIS AM. 02 INCREASED TO 5L- SATS 88-91%. NO WHEEZING AUSCULTATED. ENCOURAGED PT TO USE FLUTTER VALVE. 02 SAT CURRENTLY SUSTAINED AT 90% ON 5L. RT NOTIFIED. PT RESTING CALMLY AT THIS TIME. RESPS REGULAR, EVEN, DEEP BREATHING THROUGH NOSE. NO DISTRESS. WCTM.
--- NOTE | 2021-01-04 06:33 | NUR ---
02 TITRATED DOWN TO 1L VIA NC. PT CURRENTLY SATTING AT 94% ON 1L 02 VIA NC AT REST. RESPS EVEN, NON-LABORED.
[2021-01-04] MEDS ORDERED: TUMS500 MG PO (11:51)
[2021-01-04] MEDS ORDERED: Acetaminophen325 M1 PO (11:51)
[2021-01-04] MEDS ORDERED: DOCU100 PO (11:52)
[2021-01-04] MEDS ORDERED: GUAI600T33 PO (11:53)
[2021-01-04] MEDS ORDERED: DIABETIC T100 MG/5 M (11:54)
[2021-01-04] MEDS ORDERED: ATIVAN0.5 MG PO (11:55)
[2021-01-04] MEDS ORDERED: SENN187 PO (11:56)
--- NOTE | 2021-01-04 17:00 | NUR ---
REPORT CALLED TO SCARLETT AT [facility], [place] [address]. PTS DAUGHTER AT BEDSIDE THIS AFTERNOON AND BROUGHT HER CLOTHES TO WEAR FOR TRANSPORTATION. [facility] JOSE ALEJANDRO HERE TO PICK PT UP [address]PR[address] 1635. PT ABLE TO GET HERSELF INTO W/C. TO [facility] TO TRANSPORTATION VAN.
== END 2021-01-04 16:45 | DRG 871 ==
LOC: ER 15:29 → ICUE 20:29 → ICUW 20:29 → ICUE 22:20 → PCU 12-29 14:25 → MEDS 12-30 11:35
PROVIDERS: Internal Medicine; Internal Medicine Critical Care Medicine; Internal Medicine Pulmonary Disease; Nurse Practitioner Acute Care; Physician Assistant; ADMIT Internal Medicine
PROC: 5A09357 Assistance with Respiratory Ventilation, Less than 24 Consecutive Hours, Continuous Positive Airway Pressure (ICD-10-PCS; principal; 2020-12-15)
PROC: XW033E5 Introduction of Remdesivir Anti-infective into Peripheral Vein, Percutaneous Approach, New Technology Group 5 (ICD-10-PCS; 2020-12-20)
PROC: 5A1945Z Respiratory Ventilation, 24-96 Consecutive Hours (ICD-10-PCS; 2020-12-23)
PROC: 0BH17EZ Insertion of Endotracheal Airway into Trachea, Via Natural or Artificial Opening (ICD-10-PCS; 2020-12-23)
PROC: 02HV33Z Insertion of Infusion Device into Superior Vena Cava, Percutaneous Approach (ICD-10-PCS; 2020-12-24)
PROC: 3E033XZ Introduction of Vasopressor into Peripheral Vein, Percutaneous Approach (ICD-10-PCS; 2020-12-24)
DX: A41.89 Other specified sepsis (principal); U07.1 COVID-19; J96.01 Acute respiratory failure with hypoxia; J12.82 Pneumonia due to coronavirus disease 2019; J93.9 Pneumothorax, unspecified; E87.6 Hypokalemia; J45.909 Unspecified asthma, uncomplicated; E03.9 Hypothyroidism, unspecified; E66.9 Obesity, unspecified; J98.2 Interstitial emphysema; Z87.891 Personal history of nicotine dependence; I95.9 Hypotension, unspecified; E83.39 Other disorders of phosphorus metabolism; K30 Functional dyspepsia; F41.0 Panic disorder [episodic paroxysmal anxiety]; Z68.36 Body mass index [BMI] 36.0-36.9, adult; Z78.1 Physical restraint status; R65.20 Severe sepsis without septic shock
CPT/HCPCS: 31500; 36415; 36569; 36600; 51702; 71045; 71250; 71260; 80048; 80053; 80069; 81001; 82330; 82803; 82947; 83605; 83735; 83880; 84100; 84145; 84484; 85025; 85027; 85379; 86140; 87040; 87070; 87205; 92610; 93005; 93010; 94002; 94003; 94640; 94660; 94667; 94668; 94760; 94762; 96365; 96367; 96375; 97110; 97112; 97116; 97162; 97166; 97530; 97535; 99285-25; A9270; C1751; J0456; J0696; J1650; J1940; J2060; J2704; J2930; J3262; J3475; J3480; J7030; J7040; J7050; J7060; Q9967

== ENCOUNTER 2022-04-17 11:23 | Emergency (ER) | payer OTHER ==
[~2022-04-17] VITALS: Ht 167.6 cm; Wt 117.9 kg
[~2022-04-17 11:23] MED LIST changes: +ATIVAN0.5 MG PO; +Acetaminophen325 M1 PO; +DIABETIC T100 MG/5 M; +DOCU100 PO; +GUAI600T33 PO; +SENN187 PO; +TUMS500 MG PO
[2022-04-17] MEDS ORDERED: Neurontin 300300 MG PO (14:51)
[2022-04-17] MEDS ORDERED: Norco 5-325 Ta1 EACH PO (14:51)
== END 2022-04-17 15:15 | disposition home or self-care (01) ==
LOC: ER 11:23
DX: M48.56XA Collapsed vertebra, not elsewhere classified, lumbar region, initial encounter for fracture (principal); J45.909 Unspecified asthma, uncomplicated; E03.9 Hypothyroidism, unspecified; Z79.899 Other long term (current) drug therapy
CPT/HCPCS: J1885

== ENCOUNTER → 2023-12-04 | Outpatient (CLI) | payer OTHER ==
[~2023-12-04] MED LIST changes: +Neurontin 300300 MG PO; +Norco 5-325 Ta1 EACH PO
[2023-12-04 17:14] LABS: U Amphetamine Screen Not Detected; U Barbituate Screen Not Detected; U Benzodiazapine Screen Not Detected; U Buprenorphine Screen Not Detected; U Cannabinoids Screen Not Detected; U Cocaine Screen Not Detected; U Methadone Screen Not Detected; U Methamphetamine Screen Not Detected; U Opiates Screen Not Detected; U Oxycodone Screen Not Detected; U Phencyclidine Screen Not Detected
[2023-12-04 18:56] LABS: Free Thyroxine 0.57 ng/dL (0.70-1.60)
[2023-12-04 18:59] LABS: Thyroid Stimulating Hormone 12.6 uIU/mL (0.360-4.800)
== END | disposition home or self-care (01) ==
LOC: LAB 16:27 → LAB SHORT 16:27
PROVIDERS: Nurse Practitioner Family
DX: E03.9 Hypothyroidism, unspecified (principal); M54.16 Radiculopathy, lumbar region; R35.1 Nocturia
CPT/HCPCS: 84439; 84443; 87077; 87086; 87186

== ENCOUNTER → 2024-02-21 | Outpatient (CLI) | payer OTHER ==
[2024-02-21 19:30] LABS: Free Thyroxine 0.74 ng/dL (0.70-1.60); Thyroid Stimulating Hormone 7.36 uIU/mL (0.360-4.800)
== END ==
LOC: LAB 11:55 → LAB SHORT 11:55
PROVIDERS: Nurse Practitioner Family
DX: E03.9 Hypothyroidism, unspecified (principal)
CPT/HCPCS: 84439; 84443